=== PATIENT | female | born 1930 | race Caucasian/White ===

== ENCOUNTER 2017-03-01 10:09 | Inpatient (IN) | payer MEDICARE ==
[~2017-03-01] VITALS: Ht 152.4 cm; Wt 61.3 kg
--- NOTE | ~2017-03-01 | O ---
[place], [place] OPERATIVE NOTE [id number] UN[facility] #: [id number] ROOM: 407 DOCTOR: JONO MENCHACA MD BIRTHDATE: [birth year] DOS: 03/07/2017 PREOPERATIVE DIAGNOSIS: High-grade partial small bowel obstruction. POSTOPERATIVE DIAGNOSIS: High-grade partial small bowel obstruction. PROCEDURE: Exploratory laparotomy with lysis of adhesions. SURGEON: Jono Menchaca MD. LAW ENFORCEMENT INSTRUCTOR: PGY1. ANESTHESIA: General with endotracheal intubation. INDICATIONS: This is an 86-year-old lady who was admitted with a history of abdominal pain and distention associated with nausea and vomiting. She was diagnosed with high-grade partial small bowel obstruction despite multiple days of conservative measurement. The patient did not remove and it was decided to take the patient to the operating room for an exploratory laparotomy with possible bowel dissection, possible lysis of adhesions. The procedure and its complications were explained to the patient and her in detail preoperatively. Complications that were discussed included but were not limited to bleeding, infection, hematoma/seroma/abscess formation, prolonged postoperative pain, damage to underlying vital structures, enterocutaneous fistula formation, incisional hernia formation, and she agreed to proceed. DESCRIPTION OF PROCEDURE: After identifying the patient, the patient was brought to the operating suite and laid in the supine position. After induction of general anesthesia, a Larson catheter was placed into the urinary bladder and the parts were then painted and draped in the usual sterile fashion. A time-out procedure was called. An incision was made in the midline. The patient had had previous lower midline abdominal scar from a previous . It was decided to use the same scar and extend the incision superiorly in order to get inside the abdominal cavity in a previously unexplored area. The skin and the subcutaneous tissue were incised, the fascia was incised in the superior aspect of the incision, and the peritoneum was opened. With the help of carefully dissection, the entire small fascial defect was incised with the help of electrocautery in the length of the incision. There were no obvious adhesions between the small intestine and the midline incision. There were multiple loops of approximately dilator small bowel loops, which was delivered out of the wound until the area of the obstruction was visualized. This was found to be because of an internal hernia from from previous adhesions. The bowel was carefully pulled out and was found to be mildly ischemic, but there were no obvious necrosis or perforation. The rest of the intestine distally was decompressed. The colon was also visualized and was found to be decompressed with no obvious lesions. At this point, the area of the mild ischemia was covered with warm saline and the rest of the small intestine was decompressed so that the fluid could travel easily distally. After that was done, the area of the obstruction was visualized again and it had pinked up nicely without any areas of ischemia that could be visualized. At this point, it was decided to [place], [place] OPERATIVE NOTE NAME: NAKUL MONTERO UNIT #: [id number] ROOM: 407 DOCTOR: JONO MENCHACA MD BIRTHDATE: [birth year] not proceed with any kind of bowel dissection. The rest of the abdomen was explored and there was no obvious lesion that could be identified. Approximately 500 mL of clear ascitic fluid was sucked away. After the loops of small intestine were replaced back into the abdominal cavity, the fascial defect was approximated with the help of looped PDS in a running fashion. Thereafter, the skin edges were approximated with the help of sara after the edges were infiltrated with local anesthesia. A dressing was placed. The patient tolerated the procedure well. There were no complications. Dr. Jono Menchaca, the attending surgeon, was present throughout the operating case. The patient was brought to the recovery room in a stable fashion. Jono Menchaca MD CM:OPRECORD:OPERATIVE NOTE [id number] JONO MENCHACA MD 03/07/17 1408 interface
[~2017-03-01 10:09] MED LIST: ALBUTEROL0.09 MG/A2 INH; ASCRIPTIN325 MG; ASPIRIN ADULT L81 M1 PO; CARDIZEM CD180 MG PO; COMBIVENT1 AR2 INH; COREG6.25 MG PO; DUONEB 3 MG/3 ML3 M1 NEB; K-LOR 20MEQ20 ME1; LASIX20 MG PO; LASIX40 MG; LIPITOR10 MG; MACROBID100 M1 PO; MOM30 ML; MULTIVITAMIN1 CTB PO; NITRO BID; NORFLEX100 MG PO; PLAVIX75 MG; PREDNISONE20 MG PO; ROBITUSSIN AC 110 ML PO; SIMVASTATIN40 MG PO; SYMBICORT1 AER INH; TYLENOL325 M1; VIBRAMYCIN100 MG PO; VICODIN1 TAB PO; XANAX0.25 MG; ZITHROMAX Z PA250 MG PO
[2017-03-01] MEDS ORDERED: COREG12.5 M1 PO (10:19)
[2017-03-01 10:20] VITALS: BP 129/58
[2017-03-01] MEDS ORDERED: SYMBICORT1 AE1 INH (10:20)
[2017-03-01 10:47] LABS: BASO % 0.2 % (0.0-1.0); HEMATOCRIT 43.2 % (37.0-47.0); HEMOGLOBIN 14.7 g/dl (12.0-16.0); LYMPH # 1.4 10*3/uL (1.3-4.4); LYMPH % 13.2 % (27.0-41.0); MEAN CORPUSCULAR HGB 33.3 pg (27.0-31.0); MEAN PLATELET VOLUME 10.4 fl (9.6-12.3); MONO # 0.8 10*3/uL (0.1-1.0); MONO % 7.1 % (3.0-9.0); NEUT # 8.5 10*3/uL (2.3-7.9); NEUT % 79.2 % (47.0-73.0); PLATELET COUNT AUTOMATED 218 10*3/uL (130-400); RED BLOOD COUNT 4.41 10*6/uL (4.10-5.10); RED CELL DISTRI WIDTH 12.6 % (0-14.5); WHITE BLOOD COUNT 10.8 10*3/uL (4.8-10.8)
[2017-03-01 11:04] LABS: ALBUMIN 4.2 gm/dl (3.1-4.5); POTASSIUM 4.9 mmol/L (3.5-5.1); TOTAL PROTEIN 8.3 gm/dL (6.4-8.2)
[2017-03-01 12:07] LABS: BILIRUBIN 1+ (NEGATIVE); BLOOD NEGATIVE (NEGATIVE); CLARITY SL CLOUDY (CLEAR); COLOR YELLOW (YELLOW); GLUCOSE NEGATIVE (NEGATIVE); KETONE TRACE (NEGATIVE); LEUKO ESTERASE TRACE (NEGATIVE); NITRITE NEGATIVE (NEGATIVE); PROTEIN 1+ (NEGATIVE); SPECIFIC GRAVITY 1.025 (1.005-1.030); UROBILINOGEN 0.2 E.U./dl (0.2-1.0)
[2017-03-01 12:13] LABS: BACTERIA 1+; MUCOUS 1+
[2017-03-01 12:14] LABS: URINE REFLEX COMMENT YES (NO)
[2017-03-01 13:05] VITALS: BP 122/60
[2017-03-01 13:15] VITALS: BP 148/77
[2017-03-01 16:00] VITALS: BP 139/70
[2017-03-01 20:00] VITALS: BP 162/82
[2017-03-02] VITALS: BP 130/70; BP 143/80
[2017-03-02 06:24] LABS: HEMATOCRIT 39.1 % (37.0-47.0); HEMOGLOBIN 13.2 g/dl (12.0-16.0); MEAN CELL VOLUME 100.3 fl (81.0-99.0); MEAN CORPUSCULAR HGB 33.8 pg (27.0-31.0); MEAN CORPUSCULAR HGB CONC 33.8 g/dl (33.0-37.0); MEAN PLATELET VOLUME 10.6 fl (9.6-12.3); PLATELET COUNT AUTOMATED 171 10*3/uL (130-400); RED CELL DISTRI WIDTH 12.6 % (0-14.5)
[2017-03-02 06:44] LABS: HEMOGLOBIN A1c 5.7 % (4.8-5.6)
[2017-03-02 06:54] LABS: ALBUMIN 3.6 gm/dl (3.1-4.5); BILIRUBIN, TOTAL 0.9 mg/dl (0.2-1.0); FREE T4 1.36 ng/dl (0.76-1.46); MAGNESIUM 2.5 mg/dL (1.5-2.1); PHOSPHOROUS 4.9 mg/dL (2.5-4.9); POTASSIUM 4.5 mmol/L (3.5-5.1); TOTAL PROTEIN 7.1 gm/dL (6.4-8.2)
[2017-03-02 06:59] LABS: THYROID STIM HORMONE (HS) 1.56 uIU/ml (0.358-4.75)
[2017-03-02 07:19] LABS: VITAMIN D, 25-HYDROXY 33.6 ng/mL (30-100)
[2017-03-02 07:26] LABS: LYMPHOCYTE # 0.6 10*3/uL (1.3-4.4); MONOCYTE # 0.7 10*3/uL (0.1-1.0); NEUTROPHIL # 4.7 10*3/uL (2.3-7.9); NEUTROPHILS 78 % (47-73); PLATELET SUFFICIENCY NORMAL (NORMAL); TOTAL CELLS COUNTED 100 #CELLS
[2017-03-02 07:27] LABS: FOLIC ACID > 24.00 ng/mL (>5.38)
[2017-03-02 08:00] VITALS: BP 130/70
[2017-03-02 12:00] VITALS: BP 132/62
[2017-03-02 16:00] VITALS: BP 141/64
[2017-03-03] VITALS: BP 135/71
[2017-03-03 06:40] LABS: HEMATOCRIT 38.6 % (37.0-47.0); MEAN CELL VOLUME 99.7 fl (81.0-99.0); MEAN CORPUSCULAR HGB 33.6 pg (27.0-31.0); MEAN CORPUSCULAR HGB CONC 33.7 g/dl (33.0-37.0); MEAN PLATELET VOLUME 10.3 fl (9.6-12.3); PLATELET COUNT AUTOMATED 162 10*3/uL (130-400); RED BLOOD COUNT 3.87 10*6/uL (4.10-5.10); RED CELL DISTRI WIDTH 12.4 % (0-14.5); WHITE BLOOD COUNT 6.6 10*3/uL (4.8-10.8)
[2017-03-03 07:09] LABS: ALBUMIN 3.3 gm/dl (3.1-4.5); MAGNESIUM 2.5 mg/dL (1.5-2.1); POTASSIUM 3.7 mmol/L (3.5-5.1)
[2017-03-03 07:15] LABS: BILIRUBIN, TOTAL 0.7 mg/dl (0.2-1.0); PHOSPHOROUS 3.8 mg/dL (2.5-4.9); TOTAL PROTEIN 6.6 gm/dL (6.4-8.2)
[2017-03-03 07:24] LABS: LYMPHOCYTE # 1.5 10*3/uL (1.3-4.4); MONOCYTE # 0.3 10*3/uL (0.1-1.0); NEUTROPHIL # 4.8 10*3/uL (2.3-7.9); NEUTROPHILS 72 % (47-73); PLATELET SUFFICIENCY NORMAL (NORMAL); TOTAL CELLS COUNTED 100 #CELLS
[2017-03-03 08:00] VITALS: BP 146/80
[2017-03-03 12:00] VITALS: BP 139/58
[2017-03-03 16:00] VITALS: BP 135/93
[2017-03-03 20:00] VITALS: BP 142/70
[2017-03-04] VITALS: BP 132/66
[2017-03-04 07:06] LABS: BASO % 0.1 % (0.0-1.0); EOS % 0.1 % (1.0-4.0); HEMATOCRIT 37.9 % (37.0-47.0); HEMOGLOBIN 12.5 g/dl (12.0-16.0); LYMPH # 1.3 10*3/uL (1.3-4.4); LYMPH % 16.4 % (27.0-41.0); MEAN CELL VOLUME 101.6 fl (81.0-99.0); MEAN CORPUSCULAR HGB 33.5 pg (27.0-31.0); MEAN PLATELET VOLUME 10.8 fl (9.6-12.3); MONO # 0.8 10*3/uL (0.1-1.0); MONO % 9.5 % (3.0-9.0); NEUT % 73.5 % (47.0-73.0); PLATELET COUNT AUTOMATED 161 10*3/uL (130-400); RED BLOOD COUNT 3.73 10*6/uL (4.10-5.10); RED CELL DISTRI WIDTH 12.5 % (0-14.5); WHITE BLOOD COUNT 8.2 10*3/uL (4.8-10.8)
[2017-03-04 07:34] LABS: ALBUMIN 2.9 gm/dl (3.1-4.5); BILIRUBIN, TOTAL 0.7 mg/dl (0.2-1.0); MAGNESIUM 2.6 mg/dL (1.5-2.1); POTASSIUM 3.4 mmol/L (3.5-5.1)
[2017-03-04 08:00] VITALS: BP 134/60
[2017-03-04 12:00] VITALS: BP 117/49
[2017-03-04 16:00] VITALS: BP 151/64
[2017-03-04 20:00] VITALS: BP 118/48
[2017-03-05] VITALS: BP 135/68
[2017-03-05 05:57] LABS: BASO % 0.1 % (0.0-1.0); EOS # 0.1 10*3/uL (0.0-0.4); EOS % 0.5 % (1.0-4.0); IG # 0.1 10*3/uL (0.0-0.1); LYMPH # 1.4 10*3/uL (1.3-4.4); MEAN CORPUSCULAR HGB CONC 33.3 g/dl (33.0-37.0); MEAN PLATELET VOLUME 10.2 fl (9.6-12.3); MONO # 0.8 10*3/uL (0.1-1.0); MONO % 7.5 % (3.0-9.0); NEUT # 7.8 10*3/uL (2.3-7.9); NEUT % 77.3 % (47.0-73.0); PLATELET COUNT AUTOMATED 167 10*3/uL (130-400); RED BLOOD COUNT 3.53 10*6/uL (4.10-5.10); RED CELL DISTRI WIDTH 12.3 % (0-14.5); WHITE BLOOD COUNT 10.1 10*3/uL (4.8-10.8)
[2017-03-05 06:23] LABS: ALBUMIN 2.8 gm/dl (3.1-4.5); BILIRUBIN, TOTAL 0.7 mg/dl (0.2-1.0); MAGNESIUM 2.1 mg/dL (1.5-2.1); POTASSIUM 3.6 mmol/L (3.5-5.1); TOTAL PROTEIN 5.4 gm/dL (6.4-8.2)
[2017-03-05 08:00] VITALS: BP 105/74
[2017-03-05 16:00] VITALS: BP 131/44
[2017-03-05 20:00] VITALS: BP 133/56
[2017-03-06] VITALS: BP 131/71
[2017-03-06 08:00] VITALS: BP 116/56
[2017-03-06 12:00] VITALS: BP 134/53
[2017-03-06 16:00] VITALS: BP 138/52
[2017-03-06 20:00] VITALS: BP 126/73
[2017-03-07] VITALS (11 sets, daily range): BP systolic 105–136; BP diastolic 53–74
[2017-03-07 09:35] LABS: HEMATOCRIT 40.7 % (37.0-47.0); HEMOGLOBIN 13.6 g/dl (12.0-16.0); MEAN CELL VOLUME 99.5 fl (81.0-99.0); MEAN CORPUSCULAR HGB 33.3 pg (27.0-31.0); MEAN CORPUSCULAR HGB CONC 33.4 g/dl (33.0-37.0); MEAN PLATELET VOLUME 10.6 fl (9.6-12.3); PLATELET COUNT AUTOMATED 189 10*3/uL (130-400); RED BLOOD COUNT 4.09 10*6/uL (4.10-5.10); RED CELL DISTRI WIDTH 12.2 % (0-14.5); WHITE BLOOD COUNT 7.4 10*3/uL (4.8-10.8)
[2017-03-07 09:53] LABS: BUN 33 mg/dl (7-24); CARBON DIOXIDE 21 mmol/L (21-32); CHLORIDE 104 mmol/L (98-107); EST GLOM FILT AFRICAN AMERICAN > 60 ml/min; GLUCOSE 59 mg/dL (65-99); POTASSIUM 3.9 mmol/L (3.5-5.1); SODIUM 139 mmol/L (136-145)
[2017-03-07 10:06] LABS: EOSINOPHIL # 0.1 10*3/uL (0-0.4); EOSINOPHILS 1 % (1-4); LYMPHOCYTE # 0.8 10*3/uL (1.3-4.4); METAMYELOCYTES 1 % (0-0); MONOCYTE # 0.4 10*3/uL (0.1-1.0); NEUTROPHIL # 6.1 10*3/uL (2.3-7.9); NEUTROPHILS 82 % (47-73); TOTAL CELLS COUNTED 100 #CELLS
[2017-03-07 10:07] LABS: BURR CELLS FEW; PLATELET SUFFICIENCY NORMAL (NORMAL); TOXIC GRANULATION SLIGHT
[2017-03-08] VITALS: BP 119/52
[2017-03-08 07:35] LABS: BASO % 0.2 % (0.0-1.0); EOS % 0.1 % (1.0-4.0); HEMATOCRIT 36.6 % (37.0-47.0); HEMOGLOBIN 12.4 g/dl (12.0-16.0); IG # 0.2 10*3/uL (0.0-0.1); LYMPH # 1.4 10*3/uL (1.3-4.4); LYMPH % 11.8 % (27.0-41.0); MEAN CELL VOLUME 99.5 fl (81.0-99.0); MEAN CORPUSCULAR HGB 33.7 pg (27.0-31.0); MEAN CORPUSCULAR HGB CONC 33.9 g/dl (33.0-37.0); MEAN PLATELET VOLUME 10.4 fl (9.6-12.3); MONO # 0.8 10*3/uL (0.1-1.0); MONO % 6.8 % (3.0-9.0); NEUT # 9.1 10*3/uL (2.3-7.9); NEUT % 79.8 % (47.0-73.0); PLATELET COUNT AUTOMATED 166 10*3/uL (130-400); RED BLOOD COUNT 3.68 10*6/uL (4.10-5.10); RED CELL DISTRI WIDTH 12.4 % (0-14.5); WHITE BLOOD COUNT 11.4 10*3/uL (4.8-10.8)
[2017-03-08 07:44] LABS: ALBUMIN 2.3 gm/dl (3.1-4.5); BILIRUBIN, TOTAL 0.5 mg/dl (0.2-1.0); POTASSIUM 4.3 mmol/L (3.5-5.1); TOTAL PROTEIN 4.9 gm/dL (6.4-8.2)
[2017-03-08 08:00] VITALS: BP 122/50
[2017-03-08 12:00] VITALS: BP 119/56
[2017-03-08 16:00] VITALS: BP 109/53
[2017-03-08 20:00] VITALS: BP 106/51; BP 108/50
[2017-03-09] VITALS: BP 104/50
[2017-03-09 06:59] LABS: BASO % 0.1 % (0.0-1.0); EOS # 0.1 10*3/uL (0.0-0.4); EOS % 1.4 % (1.0-4.0); HEMATOCRIT 31.6 % (37.0-47.0); HEMOGLOBIN 10.6 g/dl (12.0-16.0); IG # 0.1 10*3/uL (0.0-0.1); LYMPH # 0.9 10*3/uL (1.3-4.4); LYMPH % 13.4 % (27.0-41.0); MEAN CELL VOLUME 99.1 fl (81.0-99.0); MEAN CORPUSCULAR HGB 33.2 pg (27.0-31.0); MEAN CORPUSCULAR HGB CONC 33.5 g/dl (33.0-37.0); MEAN PLATELET VOLUME 10.4 fl (9.6-12.3); MONO # 0.5 10*3/uL (0.1-1.0); MONO % 6.7 % (3.0-9.0); NEUT # 5.4 10*3/uL (2.3-7.9); PLATELET COUNT AUTOMATED 155 10*3/uL (130-400); RED BLOOD COUNT 3.19 10*6/uL (4.10-5.10); RED CELL DISTRI WIDTH 12.4 % (0-14.5)
[2017-03-09 07:34] LABS: POTASSIUM 3.7 mmol/L (3.5-5.1)
[2017-03-09 08:00] VITALS: BP 106/52
[2017-03-09 12:00] VITALS: BP 110/67
[2017-03-09 16:00] VITALS: BP 128/96
[2017-03-09 20:00] VITALS: BP 134/63
[2017-03-10] VITALS: BP 118/53
[2017-03-10 06:48] LABS: BASO % 0.3 % (0.0-1.0); EOS # 0.1 10*3/uL (0.0-0.4); EOS % 2.1 % (1.0-4.0); HEMATOCRIT 34.9 % (37.0-47.0); HEMOGLOBIN 11.7 g/dl (12.0-16.0); IG # 0.1 10*3/uL (0.0-0.1); LYMPH # 0.8 10*3/uL (1.3-4.4); LYMPH % 13.6 % (27.0-41.0); MEAN CELL VOLUME 99.7 fl (81.0-99.0); MEAN CORPUSCULAR HGB 33.4 pg (27.0-31.0); MEAN CORPUSCULAR HGB CONC 33.5 g/dl (33.0-37.0); MEAN PLATELET VOLUME 10.2 fl (9.6-12.3); MONO # 0.6 10*3/uL (0.1-1.0); MONO % 9.4 % (3.0-9.0); NEUT # 4.5 10*3/uL (2.3-7.9); NEUT % 73.1 % (47.0-73.0); PLATELET COUNT AUTOMATED 196 10*3/uL (130-400); RED CELL DISTRI WIDTH 12.5 % (0-14.5); WHITE BLOOD COUNT 6.2 10*3/uL (4.8-10.8)
[2017-03-10 06:54] LABS: POTASSIUM 4.3 mmol/L (3.5-5.1)
[2017-03-10 08:00] VITALS: BP 106/50
[2017-03-10 12:00] VITALS: BP 102/51
[2017-03-10 16:00] VITALS: BP 112/57
[2017-03-10 20:00] VITALS: BP 104/54
[2017-03-10 23:35] VITALS: BP 136/76
[2017-03-11 06:24] LABS: EOS # 0.2 10*3/uL (0.0-0.4); EOS % 3.1 % (1.0-4.0); HEMATOCRIT 31.1 % (37.0-47.0); HEMOGLOBIN 10.4 g/dl (12.0-16.0); IG # 0.1 10*3/uL (0.0-0.1); LYMPH # 0.9 10*3/uL (1.3-4.4); MEAN CELL VOLUME 99.4 fl (81.0-99.0); MEAN CORPUSCULAR HGB 33.2 pg (27.0-31.0); MEAN CORPUSCULAR HGB CONC 33.4 g/dl (33.0-37.0); MEAN PLATELET VOLUME 10.5 fl (9.6-12.3); MONO # 0.5 10*3/uL (0.1-1.0); MONO % 9.7 % (3.0-9.0); NEUT # 3.3 10*3/uL (2.3-7.9); PLATELET COUNT AUTOMATED 179 10*3/uL (130-400); RED BLOOD COUNT 3.13 10*6/uL (4.10-5.10); RED CELL DISTRI WIDTH 12.7 % (0-14.5); WHITE BLOOD COUNT 4.8 10*3/uL (4.8-10.8)
[2017-03-11 06:58] LABS: BUN 31 mg/dl (7-24); CARBON DIOXIDE 24 mmol/L (21-32); CHLORIDE 107 mmol/L (98-107); GLUCOSE 152 mg/dL (65-99); POTASSIUM 4.1 mmol/L (3.5-5.1); SGPT/ALT 22 U/L (12-78); SODIUM 138 mmol/L (136-145)
[2017-03-11 07:01] LABS: ALKALINE PHOSPHATASE 51 U/L (45-117); BILIRUBIN, TOTAL 0.3 mg/dl (0.2-1.0); EST GLOM FILT AFRICAN AMERICAN > 60 ml/min; SGOT/AST 25 IU/L (3-35); TOTAL PROTEIN 4.3 gm/dL (6.4-8.2)
[2017-03-11 08:00] VITALS: BP 115/70
[2017-03-11 12:00] VITALS: BP 102/56
[2017-03-11 16:00] VITALS: BP 96/50
[2017-03-11 20:00] VITALS: BP 106/59
[2017-03-11 23:49] VITALS: BP 121/54
[2017-03-12 06:06] LABS: BASO % 0.4 % (0.0-1.0); EOS # 0.2 10*3/uL (0.0-0.4); EOS % 3.2 % (1.0-4.0); HEMATOCRIT 34.8 % (37.0-47.0); HEMOGLOBIN 11.7 g/dl (12.0-16.0); IG # 0.1 10*3/uL (0.0-0.1); LYMPH # 1.4 10*3/uL (1.3-4.4); LYMPH % 25.2 % (27.0-41.0); MEAN CELL VOLUME 101.2 fl (81.0-99.0); MEAN CORPUSCULAR HGB CONC 33.6 g/dl (33.0-37.0); MEAN PLATELET VOLUME 10.3 fl (9.6-12.3); MONO # 0.6 10*3/uL (0.1-1.0); MONO % 10.1 % (3.0-9.0); NEUT # 3.4 10*3/uL (2.3-7.9); PLATELET COUNT AUTOMATED 226 10*3/uL (130-400); RED BLOOD COUNT 3.44 10*6/uL (4.10-5.10); RED CELL DISTRI WIDTH 12.9 % (0-14.5); WHITE BLOOD COUNT 5.6 10*3/uL (4.8-10.8)
[2017-03-12 06:41] LABS: ALBUMIN 2.3 gm/dl (3.1-4.5); BUN 27 mg/dl (7-24); CARBON DIOXIDE 29 mmol/L (21-32); CHLORIDE 105 mmol/L (98-107); GLUCOSE 103 mg/dL (65-99); POTASSIUM 4.7 mmol/L (3.5-5.1); SODIUM 139 mmol/L (136-145)
[2017-03-12 06:45] LABS: ALKALINE PHOSPHATASE 65 U/L (45-117); BILIRUBIN, TOTAL 0.3 mg/dl (0.2-1.0); EST GLOM FILT AFRICAN AMERICAN > 60 ml/min; SGOT/AST 32 IU/L (3-35); SGPT/ALT 29 U/L (12-78); TOTAL PROTEIN 5.1 gm/dL (6.4-8.2)
[2017-03-12 08:00] VITALS: BP 134/71
[2017-03-12 12:00] VITALS: BP 130/80
[2017-03-12 16:00] VITALS: BP 108/59
[2017-03-12 20:00] VITALS: BP 108/47
[2017-03-13] VITALS: BP 108/70
[2017-03-13 08:00] VITALS: BP 120/57
[2017-03-13 12:00] VITALS: BP 126/78
[2017-03-13] MEDS ORDERED: Percocet 325 MG1 TAB PO (13:40)
[2017-03-13] MEDS ORDERED: DOK COLACE100 MG PO (13:40)
== END 2017-03-13 15:00 | disposition home health service (06) | DRG 335 ==
LOC: ED 10:09 → EDHOLD 11:44 → 4E 11:44
PROVIDERS: Emergency Medicine; Family Medicine; Internal Medicine; Nurse Practitioner Family; Surgery
PROC: 0DN80ZZ Release Small Intestine, Open Approach (ICD-10-PCS; principal; 2017-03-07)
DX: K56.5 Intestinal adhesions [bands] with obstruction (postinfection) (principal); N17.0 Acute kidney failure with tubular necrosis; E43 Unspecified severe protein-calorie malnutrition; E87.0 Hyperosmolality and hypernatremia; N39.0 Urinary tract infection, site not specified; E86.0 Dehydration; J44.9 Chronic obstructive pulmonary disease, unspecified; E87.1 Hypo-osmolality and hyponatremia; I25.10 Atherosclerotic heart disease of native coronary artery without angina pectoris; E78.5 Hyperlipidemia, unspecified; D72.825 Bandemia; R73.9 Hyperglycemia, unspecified; R80.9 Proteinuria, unspecified; K59.00 Constipation, unspecified; Z68.21 Body mass index [BMI] 21.0-21.9, adult; I25.2 Old myocardial infarction; Z95.5 Presence of coronary angioplasty implant and graft; Z90.49 Acquired absence of other specified parts of digestive tract; Z90.710 Acquired absence of both cervix and uterus; Z83.3 Family history of diabetes mellitus; Z82.49 Family history of ischemic heart disease and other diseases of the circulatory system

== ENCOUNTER 2017-03-19 13:57 | Inpatient (IN) | payer MEDICARE ==
[~2017-03-19] VITALS: Ht 152.4 cm; Wt 53.3 kg
--- NOTE | ~2017-03-19 | PR ---
[place], [place] PROGRESS NOTE NAME: NAKUL MONTERO UNIT #: [id number] ROOM: 501 DOCTOR: IWONA CHEW MD BIRTHDATE: [birth year] DOS: 03/23/2017 SUBJECTIVE: The patient was seen at her bedside today, 03/23/2017 for followup of her diastolic heart failure in the setting of a recent abdominal surgery. The patient was diuresed aggressively with intravenous furosemide and has been switched to p.o. furosemide. She continues to diurese, although we have removed her Larson catheter and; therefore, it is difficult to quantify her urine output. BUN and creatinine appear to be rising with her BUN today of 37 and creatinine of 1.73. She denies dyspnea, palpitations or chest pain. She has not had any pedal edema in the last few days. She still has considerable lower abdominal and rectal pain. PHYSICAL EXAMINATION: VITAL SIGNS: Her pulse is 55 and regular and blood pressure is 114/56. NECK: Supple. She has no jugular distention. Carotids are full. I heard no bruits. LUNGS: Respirations are unlabored. Her chest is clear. HEART: Has a regular rhythm. She has an S4 gallop. ABDOMEN: Soft and normoactive. EXTREMITIES: Showed no edema. IMPRESSION: 1. Acute diastolic heart failure. 2. Developing prerenal azotemia. 3. Carotid bruits with 50-60% stenoses by carotid ultrasound bilaterally. 4. History of coronary artery disease, status post angioplasty in 2010. 5. Healthcare-acquired pneumonia. PLAN: I will back off on her diuretics and continue to follow her renal functions. We will continue risk factor modification for her other vascular disease and defer management of her pulmonary issues and GI issues to her other physicians. We will continue to follow her as needed and we thank Dr. Marrufo and the hospitalist physicians for asking our advice regarding her care. [place], [place] PROGRESS NOTE NAME: NAKUL MONTERO UNIT #: [id number] ROOM: [facility] DOCTOR: IWONA CHEW MD BIRTHDATE: [birth year] IWONA CHEW MD CM:PNTRANS [id number] IWONA CHEW MD 03/24/17 0300 interface
--- NOTE | ~2017-03-19 | PR ---
[place], [place] PROGRESS NOTE NAME: NAKUL MONTERO UNIT #: [id number] ROOM: 501 DOCTOR: IWONA CHEW MD BIRTHDATE: [birth year] DOS: 03/25/2017 CARDIOLOGY PROGRESS NOTE SUBJECTIVE: The patient was seen today at her bedside with her in attendance. She tells me that she is feeling relatively well, although she still has considerable lower abdominal and rectal pain. Her breathing is normal. She denies cough or chest pain. She is not having any palpitations. PHYSICAL EXAMINATION: VITAL SIGNS: Today, her pulse is 74 with an occasional premature beat. Blood pressure is 102/50. She is afebrile. NECK: Supple. She has no jugular distention. Carotids are full. I heard no bruits. LUNGS: Respirations were unlabored. Her chest is clear to auscultation and percussion. HEART: Has a regular rhythm with occasional premature beats. There are no murmurs. ABDOMEN: Benign. EXTREMITIES: Showed no ankle edema, but her feet are puffy. LABORATORY DATA: Review of laboratory studies show that her sodium is 139, potassium is 3.7, BUN has risen to 47 and creatinine has risen to 1.91. Because of this, her diuretics were stopped earlier today. IMPRESSION: 1. Acute diastolic heart failure. 2. Worsening prerenal azotemia. 3. Carotid bruits with 50-60% stenoses of the carotids bilaterally by ultrasonography. 4. History of coronary artery disease status post angioplasty in 2010. 5. Healthcare-acquired pneumonia. PLAN: We will continue to monitor her fluid balance and renal functions off of diuretics. No other cardiac evaluation is planned at this time and we will continue to follow her clinically. We thank the hospitalist service for asking our advice regarding her care. [place], [place] PROGRESS NOTE NAME: NAKUL MONTERO UNIT #: [id number] ROOM: [facility] DOCTOR: IWONA CHEW MD BIRTHDATE: [birth year] IWONA CHEW MD CM:PNTRANS [id number] IWONA CHEW MD 03/26/17 0311 interface
[~2017-03-19 13:57] MED LIST changes: +COREG12.5 M1 PO; +DOK COLACE100 MG PO; +Percocet 325 MG1 TAB PO; +SYMBICORT1 AE1 INH
[2017-03-19 13:59] VITALS: BP 143/107
[2017-03-19] MEDS ORDERED: FUROSEMIDE20 M1 PO (14:04)
[2017-03-19 14:29] LABS: BASO % 0.1 % (0.0-1.0); EOS % 0.4 % (1.0-4.0); HEMATOCRIT 33.8 % (37.0-47.0); HEMOGLOBIN 11.2 g/dl (12.0-16.0); IG # 0.1 10*3/uL (0.0-0.1); LYMPH # 1.3 10*3/uL (1.3-4.4); LYMPH % 16.2 % (27.0-41.0); MEAN CELL VOLUME 102.4 fl (81.0-99.0); MEAN CORPUSCULAR HGB 33.9 pg (27.0-31.0); MEAN CORPUSCULAR HGB CONC 33.1 g/dl (33.0-37.0); MEAN PLATELET VOLUME 9.4 fl (9.6-12.3); MONO # 0.6 10*3/uL (0.1-1.0); NEUT # 5.9 10*3/uL (2.3-7.9); NEUT % 74.7 % (47.0-73.0); PLATELET COUNT AUTOMATED 208 10*3/uL (130-400); RED CELL DISTRI WIDTH 13.3 % (0-14.5); WHITE BLOOD COUNT 7.8 10*3/uL (4.8-10.8)
[2017-03-19 14:38] LABS: PROTHROMBIN TIME 10.7 SECONDS (9.0-12.4)
[2017-03-19 14:45] LABS: ALBUMIN 2.5 gm/dl (3.1-4.5); ALKALINE PHOSPHATASE 96 U/L (45-117); BUN 31 mg/dl (7-24); CARBON DIOXIDE 35 mmol/L (21-32); CHLORIDE 103 mmol/L (98-107); CPK 36 U/L (26-192); EST GLOM FILT AFRICAN AMERICAN > 60 ml/min; GLUCOSE 117 mg/dL (65-99); SGOT/AST 32 IU/L (3-35); SGPT/ALT 27 U/L (12-78); SODIUM 142 mmol/L (136-145); TOTAL PROTEIN 5.5 gm/dL (6.4-8.2)
[2017-03-19 14:50] LABS: BILIRUBIN, TOTAL 0.5 mg/dl (0.2-1.0); CKMB 1.3 ng/ml (0.5-3.6); TROPONIN I 0.041 ng/ml (<0.045)
[2017-03-19 15:00] LABS: MAGNESIUM 1.9 mg/dL (1.5-2.1)
[2017-03-19 15:24] LABS: BILIRUBIN NEGATIVE (NEGATIVE); BLOOD NEGATIVE (NEGATIVE); CLARITY CLEAR (CLEAR); COLOR YELLOW (YELLOW); GLUCOSE NEGATIVE (NEGATIVE); KETONE NEGATIVE (NEGATIVE); LEUKO ESTERASE NEGATIVE (NEGATIVE); NITRITE NEGATIVE (NEGATIVE); PROTEIN NEGATIVE (NEGATIVE); UROBILINOGEN 0.2 E.U./dl (0.2-1.0)
[2017-03-19 15:41] LABS: BACTERIA 2+; EPITHELIAL CELLS 0-2; RBC 0-2 rbc/hpf (0-2); URINE REFLEX COMMENT YES (NO)
[2017-03-19 16:39] VITALS: BP 121/66
[2017-03-19 19:26] VITALS: BP 132/54
[2017-03-19 20:00] VITALS: BP 94/37
[2017-03-20] VITALS: BP 112/43
[2017-03-20 04:00] VITALS: BP 107/47
[2017-03-20 06:01] LABS: BASO % 0.2 % (0.0-1.0); EOS # 0.1 10*3/uL (0.0-0.4); EOS % 0.8 % (1.0-4.0); HEMATOCRIT 29.2 % (37.0-47.0); HEMOGLOBIN 9.5 g/dl (12.0-16.0); LYMPH # 1.2 10*3/uL (1.3-4.4); MEAN CELL VOLUME 104.3 fl (81.0-99.0); MEAN CORPUSCULAR HGB 33.9 pg (27.0-31.0); MEAN CORPUSCULAR HGB CONC 32.5 g/dl (33.0-37.0); MEAN PLATELET VOLUME 10.1 fl (9.6-12.3); MONO # 0.7 10*3/uL (0.1-1.0); MONO % 11.3 % (3.0-9.0); NEUT # 4.2 10*3/uL (2.3-7.9); NEUT % 68.4 % (47.0-73.0); PLATELET COUNT AUTOMATED 191 10*3/uL (130-400); RED CELL DISTRI WIDTH 13.3 % (0-14.5); WHITE BLOOD COUNT 6.1 10*3/uL (4.8-10.8)
[2017-03-20 06:12] LABS: ALBUMIN 2.1 gm/dl (3.1-4.5); ALKALINE PHOSPHATASE 79 U/L (45-117); BILIRUBIN, TOTAL 0.4 mg/dl (0.2-1.0); BUN 30 mg/dl (7-24); CARBON DIOXIDE 35 mmol/L (21-32); CHLORIDE 101 mmol/L (98-107); EST GLOM FILT AFRICAN AMERICAN > 60 ml/min; FREE T4 1.36 ng/dl (0.76-1.46); GLUCOSE 105 mg/dL (65-99); POTASSIUM 3.9 mmol/L (3.5-5.1); SGOT/AST 23 IU/L (3-35); SGPT/ALT 23 U/L (12-78); SODIUM 142 mmol/L (136-145); TOTAL PROTEIN 4.8 gm/dL (6.4-8.2)
[2017-03-20 08:00] VITALS: BP 111/50
[2017-03-20 12:00] VITALS: BP 123/54
[2017-03-20 16:00] VITALS: BP 109/41
[2017-03-20 20:00] VITALS: BP 119/55
[2017-03-21] VITALS: BP 97/46
[2017-03-21 06:20] LABS: BASO % 0.4 % (0.0-1.0); EOS # 0.2 10*3/uL (0.0-0.4); EOS % 3.1 % (1.0-4.0); HEMATOCRIT 31.2 % (37.0-47.0); HEMOGLOBIN 10.1 g/dl (12.0-16.0); LYMPH # 1.2 10*3/uL (1.3-4.4); LYMPH % 21.7 % (27.0-41.0); MEAN CELL VOLUME 104.3 fl (81.0-99.0); MEAN CORPUSCULAR HGB 33.8 pg (27.0-31.0); MEAN CORPUSCULAR HGB CONC 32.4 g/dl (33.0-37.0); MEAN PLATELET VOLUME 10.1 fl (9.6-12.3); MONO # 0.5 10*3/uL (0.1-1.0); MONO % 9.4 % (3.0-9.0); NEUT # 3.6 10*3/uL (2.3-7.9); NEUT % 64.9 % (47.0-73.0); PLATELET COUNT AUTOMATED 173 10*3/uL (130-400); RED BLOOD COUNT 2.99 10*6/uL (4.10-5.10); RED CELL DISTRI WIDTH 13.3 % (0-14.5); WHITE BLOOD COUNT 5.5 10*3/uL (4.8-10.8)
[2017-03-21 06:22] LABS: POTASSIUM 3.4 mmol/L (3.5-5.1)
[2017-03-21 08:00] VITALS: BP 112/52
[2017-03-21 12:00] VITALS: BP 110/80
[2017-03-21 16:00] VITALS: BP 102/49
[2017-03-21 20:00] VITALS: BP 112/53; BP 113/81
[2017-03-22] VITALS: BP 118/67
[2017-03-22 06:57] LABS: BASO % 0.2 % (0.0-1.0); EOS # 0.1 10*3/uL (0.0-0.4); EOS % 2.2 % (1.0-4.0); HEMATOCRIT 31.6 % (37.0-47.0); HEMOGLOBIN 10.7 g/dl (12.0-16.0); LYMPH # 1.4 10*3/uL (1.3-4.4); LYMPH % 25.2 % (27.0-41.0); MEAN CELL VOLUME 101.9 fl (81.0-99.0); MEAN CORPUSCULAR HGB 34.5 pg (27.0-31.0); MEAN CORPUSCULAR HGB CONC 33.9 g/dl (33.0-37.0); MEAN PLATELET VOLUME 9.8 fl (9.6-12.3); MONO # 0.6 10*3/uL (0.1-1.0); MONO % 10.3 % (3.0-9.0); NEUT # 3.4 10*3/uL (2.3-7.9); NEUT % 61.6 % (47.0-73.0); PLATELET COUNT AUTOMATED 194 10*3/uL (130-400); RED CELL DISTRI WIDTH 13.2 % (0-14.5); WHITE BLOOD COUNT 5.6 10*3/uL (4.8-10.8)
[2017-03-22 07:32] LABS: ALBUMIN 2.7 gm/dl (3.1-4.5); BILIRUBIN, TOTAL 0.7 mg/dl (0.2-1.0); MAGNESIUM 1.9 mg/dL (1.5-2.1); PHOSPHOROUS 2.6 mg/dL (2.5-4.9); POTASSIUM 3.7 mmol/L (3.5-5.1); TOTAL PROTEIN 5.6 gm/dL (6.4-8.2)
[2017-03-22 08:00] VITALS: BP 116/65
[2017-03-22 12:00] VITALS: BP 138/72
[2017-03-22 16:00] VITALS: BP 117/54
[2017-03-22 20:00] VITALS: BP 106/51
[2017-03-23] VITALS: BP 117/59
[2017-03-23 06:55] LABS: POTASSIUM 3.4 mmol/L (3.5-5.1)
[2017-03-23 08:00] VITALS: BP 114/56
[2017-03-23 12:00] VITALS: BP 105/55
[2017-03-23 16:00] VITALS: BP 118/56
[2017-03-23 20:00] VITALS: BP 110/60; BP 96/50
[2017-03-24] VITALS: BP 108/56
[2017-03-24 06:26] LABS: POTASSIUM 3.3 mmol/L (3.5-5.1)
[2017-03-24 08:00] VITALS: BP 114/50
[2017-03-24 12:00] VITALS: BP 106/54
[2017-03-24 16:00] VITALS: BP 109/52
[2017-03-24 20:00] VITALS: BP 100/50
[2017-03-25] VITALS: BP 100/50
[2017-03-25 06:06] LABS: BASO % 0.2 % (0.0-1.0); EOS # 0.1 10*3/uL (0.0-0.4); EOS % 2.3 % (1.0-4.0); HEMATOCRIT 28.8 % (37.0-47.0); HEMOGLOBIN 9.8 g/dl (12.0-16.0); LYMPH # 1.3 10*3/uL (1.3-4.4); MEAN CELL VOLUME 101.4 fl (81.0-99.0); MEAN CORPUSCULAR HGB 34.5 pg (27.0-31.0); MEAN PLATELET VOLUME 9.9 fl (9.6-12.3); MONO # 0.6 10*3/uL (0.1-1.0); MONO % 11.4 % (3.0-9.0); NEUT # 2.9 10*3/uL (2.3-7.9); NEUT % 59.9 % (47.0-73.0); PLATELET COUNT AUTOMATED 162 10*3/uL (130-400); RED BLOOD COUNT 2.84 10*6/uL (4.10-5.10); RED CELL DISTRI WIDTH 13.2 % (0-14.5); WHITE BLOOD COUNT 4.8 10*3/uL (4.8-10.8)
[2017-03-25 06:24] LABS: POTASSIUM 3.7 mmol/L (3.5-5.1)
[2017-03-25 08:00] VITALS: BP 100/52
[2017-03-25 12:00] VITALS: BP 94/43
[2017-03-25 16:00] VITALS: BP 102/50
[2017-03-25 20:00] VITALS: BP 102/53
[2017-03-26] VITALS: BP 95/37
[2017-03-26 00:31] VITALS: BP 105/54
[2017-03-26 06:03] LABS: BASO % 0.4 % (0.0-1.0); EOS # 0.2 10*3/uL (0.0-0.4); EOS % 3.5 % (1.0-4.0); HEMATOCRIT 30.9 % (37.0-47.0); HEMOGLOBIN 10.4 g/dl (12.0-16.0); LYMPH # 1.5 10*3/uL (1.3-4.4); LYMPH % 30.5 % (27.0-41.0); MEAN CORPUSCULAR HGB CONC 33.7 g/dl (33.0-37.0); MONO # 0.6 10*3/uL (0.1-1.0); MONO % 11.8 % (3.0-9.0); NEUT # 2.6 10*3/uL (2.3-7.9); NEUT % 53.4 % (47.0-73.0); NUCLEATED RED BLOOD CELL 0.4 % (0.0-0.0); PLATELET COUNT AUTOMATED 173 10*3/uL (130-400); RED BLOOD COUNT 3.06 10*6/uL (4.10-5.10); RED CELL DISTRI WIDTH 13.1 % (0-14.5); WHITE BLOOD COUNT 4.9 10*3/uL (4.8-10.8)
[2017-03-26 06:34] LABS: POTASSIUM 4.1 mmol/L (3.5-5.1)
[2017-03-26 08:00] VITALS: BP 102/50
[2017-03-26 12:00] VITALS: BP 88/50
[2017-03-26 16:00] VITALS: BP 98/52
[2017-03-26 19:52] VITALS: BP 108/43
[2017-03-27 00:44] VITALS: BP 131/65
[2017-03-27 06:49] LABS: POTASSIUM 3.7 mmol/L (3.5-5.1)
[2017-03-27 08:00] VITALS: BP 106/50; BP 143/74
[2017-03-27 12:00] VITALS: BP 107/54
[2017-03-27] MEDS ORDERED: ACETAMINOPHEN-H1 TA2 PO (13:27)
[2017-03-27] MEDS ORDERED: PREPARATION H CR1 OZ R (13:27)
[2017-03-27] MEDS ORDERED: LEVAQUIN500 M2 PO (13:27)
[2017-03-27] MEDS ORDERED: LASIX40 MG PO (14:34)
== END 2017-03-27 14:30 | disposition other institution (70) | DRG 871 ==
LOC: ED 13:57 → EDHOLD 17:38 → 5E 17:38 → ICCU 17:38 → 4E 18:01 → ICCU 19:54 → 5E 03-20 17:38
PROVIDERS: Emergency Medicine; Internal Medicine; Internal Medicine Cardiovascular Disease; Internal Medicine Hospice and Palliative Medicine
DX: A41.9 Sepsis, unspecified organism (principal); J15.6 Pneumonia due to other Gram-negative bacteria; J96.01 Acute respiratory failure with hypoxia; N17.0 Acute kidney failure with tubular necrosis; E43 Unspecified severe protein-calorie malnutrition; I50.31 Acute diastolic (congestive) heart failure; E87.3 Alkalosis; K57.31 Diverticulosis of large intestine without perforation or abscess with bleeding; J44.0 Chronic obstructive pulmonary disease with (acute) lower respiratory infection; K92.2 Gastrointestinal hemorrhage, unspecified; I27.2 Other secondary pulmonary hypertension; D53.1 Other megaloblastic anemias, not elsewhere classified; R65.20 Severe sepsis without septic shock; D53.9 Nutritional anemia, unspecified; K56.41 Fecal impaction; I25.10 Atherosclerotic heart disease of native coronary artery without angina pectoris; E78.5 Hyperlipidemia, unspecified; R73.9 Hyperglycemia, unspecified; R01.1 Cardiac murmur, unspecified; D72.810 Lymphocytopenia; E87.6 Hypokalemia; K64.9 Unspecified hemorrhoids; I65.23 Occlusion and stenosis of bilateral carotid arteries; E86.0 Dehydration; I25.2 Old myocardial infarction; Z95.5 Presence of coronary angioplasty implant and graft; Z90.49 Acquired absence of other specified parts of digestive tract; Z82.49 Family history of ischemic heart disease and other diseases of the circulatory system; Z88.8 Allergy status to other drugs, medicaments and biological substances; Z79.82 Long term (current) use of aspirin; Z79.899 Other long term (current) drug therapy; Z68.21 Body mass index [BMI] 21.0-21.9, adult

== ENCOUNTER → 2017-07-05 | Outpatient (CLI) | payer MEDICARE ==
[~2017-07-05] MED LIST changes: +ACETAMINOPHEN-H1 TA2 PO; +FUROSEMIDE20 M1 PO; +LASIX40 MG PO; +LEVAQUIN500 M2 PO; +PREPARATION H CR1 OZ R
[2017-07-05 15:23] LABS: HEMATOCRIT 34.2 % (37.0-47.0); HEMOGLOBIN 11.3 g/dl (12.0-16.0); MEAN PLATELET VOLUME 9.6 fl (9.6-12.3); RED BLOOD COUNT 3.32 10*6/uL (4.10-5.10); RED CELL DISTRI WIDTH 12.6 % (0-14.5); WHITE BLOOD COUNT 6.7 10*3/uL (4.8-10.8)
[2017-07-05 15:52] LABS: CREATININE 1.23 mg/dL (0.55-1.02); POTASSIUM 4.8 mmol/L (3.5-5.1)
== END | disposition home or self-care (01) ==
LOC: LAB 15:09
PROVIDERS: Internal Medicine Interventional Cardiology
DX: I25.10 Atherosclerotic heart disease of native coronary artery without angina pectoris (principal); I10 Essential (primary) hypertension; D53.9 Nutritional anemia, unspecified

== ENCOUNTER → 2017-09-26 | Outpatient (CLI) | payer MEDICARE ==
[2017-09-26 12:30] LABS: BILIRUBIN NEGATIVE (NEGATIVE); BLOOD NEGATIVE (NEGATIVE); CLARITY SL CLOUDY (CLEAR); COLOR YELLOW (YELLOW); GLUCOSE NEGATIVE (NEGATIVE); KETONE NEGATIVE (NEGATIVE); LEUKO ESTERASE 1+ (NEGATIVE); NITRITE POSITIVE (NEGATIVE); PH 5.5 (5.0-9.0); SPECIFIC GRAVITY <= 1.005 (1.005-1.030); UROBILINOGEN 0.2 E.U./dl (0.2-1.0)
[2017-09-26 12:37] LABS: BACTERIA 4+; WBC 16-20 wbc/hpf (0-5)
[2017-09-26 12:38] LABS: URINE CREATININE RANDOM 60.1 mg/dL
[2017-09-26 12:50] LABS: ALBUMIN 3.3 gm/dl (3.1-4.5); CREATININE 1.32 mg/dL (0.55-1.02); POTASSIUM 4.7 mmol/L (3.5-5.1)
== END | disposition home or self-care (01) ==
LOC: LAB 11:57
PROVIDERS: Internal Medicine Nephrology
DX: N18.3 Chronic kidney disease, stage 3 (moderate) (principal); Z79.899 Other long term (current) drug therapy

== ENCOUNTER 2017-10-04 13:31 | Inpatient (IN) | payer MEDICARE ==
[~2017-10-04] VITALS: Ht 152 cm; Wt 52.4 kg
--- NOTE | ~2017-10-04 | EKG ---
[place], [place] ELECTROCARDIOGRAM REPORT NAME: NAKUL MONTERO UNIT #: [id number] ROOM: 522 DOCTOR: BRIDGETT JOHNSON MD BIRTHDATE: [birth year] DOS: 10/04/2017 TIME: 1359 hours. FINDINGS: 1. Normal sinus rhythm at 66 beats per minute. 2. Interference is present. 3. T-wave abnormality in inferior lead. 4. No previous tracing is available for comparison. BRIDGETT JOHNSON MD CM:EKGRPT:ELECTROCARDIOGRAM REPORT 1731 10 BRIDGETT JOHNSON MD
[2017-10-04 13:36] VITALS: BP 154/100
[2017-10-04 14:04] LABS: BASO % 0.5 % (0.0-1.0); EOS # 0.1 10*3/uL (0.0-0.4); EOS % 2.3 % (1.0-4.0); HEMATOCRIT 35.5 % (37.0-47.0); HEMOGLOBIN 11.5 g/dl (12.0-16.0); LYMPH # 1.3 10*3/uL (1.3-4.4); LYMPH % 32.2 % (27.0-41.0); MEAN CELL VOLUME 104.4 fl (81.0-99.0); MEAN CORPUSCULAR HGB 33.8 pg (27.0-31.0); MEAN CORPUSCULAR HGB CONC 32.4 g/dl (33.0-37.0); MEAN PLATELET VOLUME 9.8 fl (9.6-12.3); MONO # 0.3 10*3/uL (0.1-1.0); MONO % 8.4 % (3.0-9.0); NEUT # 2.2 10*3/uL (2.3-7.9); NEUT % 56.3 % (47.0-73.0); PLATELET COUNT AUTOMATED 188 10*3/uL (130-400); WHITE BLOOD COUNT 3.9 10*3/uL (4.8-10.8)
[2017-10-04 14:23] LABS: ALBUMIN 3.5 gm/dl (3.1-4.5); CREATININE 1.28 mg/dL (0.55-1.02); POTASSIUM 4.3 mmol/L (3.5-5.1); TOTAL PROTEIN 7.1 gm/dL (6.4-8.2)
[2017-10-04 14:25] LABS: TROPONIN I 0.028 ng/ml (<0.045)
[2017-10-04 15:10] LABS: BILIRUBIN NEGATIVE (NEGATIVE); BLOOD NEGATIVE (NEGATIVE); CLARITY SL CLOUDY (CLEAR); COLOR YELLOW (YELLOW); GLUCOSE NEGATIVE (NEGATIVE); KETONE NEGATIVE (NEGATIVE); LEUKO ESTERASE 2+ (NEGATIVE); NITRITE POSITIVE (NEGATIVE); PH 5.5 (5.0-9.0); SPECIFIC GRAVITY 1.025 (1.005-1.030); UROBILINOGEN 0.2 E.U./dl (0.2-1.0)
[2017-10-04 15:20] VITALS: BP 125/50
[2017-10-04 15:20] LABS: BACTERIA 2+; WBC 51-100 wbc/hpf (0-5)
[2017-10-04 15:30] VITALS: BP 166/90
--- NOTE | 2017-10-04 15:30 | NUR ---
A 87, admitted to 5E, under the services of TIM Marx DO with a diagnosis of CHF. Chief complaint is SHORTNESS OF BREATH. Patient arrived via stretcher from ER. Monitor applied. Initial assessment completed. Vital signs taken and recorded. TIM MARX DO notified of admission to the unit. Orders received. See assessment for past medical history, medications and allergies. Patient and/or family oriented to unit. [facility] visitation policy reviewed. Clothing/patient valuable form completed. GIRMA SNELL
[2017-10-04] MEDS ORDERED: PROVENTIL HFA6.7 GM INH (15:52)
[2017-10-04] MEDS ORDERED: ONE-TABLET-DAI1 EACH PO (15:54)
[2017-10-04 20:00] VITALS: BP 123/56
--- NOTE | 2017-10-04 20:15 | NUR ---
PT PLEASANT AND COOPERATIVE DURING ASSESSMENT. C/O TICKLE IN THROAT, STATED SIPPING WATER HELPS. PT APPEARS PALE, LUNGS DIMINISHED TO AUSCULTATION. NO COMPLAINTS AT THIS TIME. CALL LIGHT IN REACH.
[2017-10-05] VITALS: BP 143/67
--- NOTE | 2017-10-05 01:54 | NUR ---
24 HOUR CHART CHECK COMPLETED AT THIS TIME.
[2017-10-05 06:56] LABS: HEMATOCRIT 34.8 % (37.0-47.0); HEMOGLOBIN 11.6 g/dl (12.0-16.0); LYMPH # 0.8 10*3/uL (1.3-4.4); LYMPH % 20.1 % (27.0-41.0); MEAN CELL VOLUME 102.1 fl (81.0-99.0); MEAN CORPUSCULAR HGB CONC 33.3 g/dl (33.0-37.0); MEAN PLATELET VOLUME 10.3 fl (9.6-12.3); NEUT # 3.2 10*3/uL (2.3-7.9); NEUT % 78.2 % (47.0-73.0); PLATELET COUNT AUTOMATED 189 10*3/uL (130-400); RED BLOOD COUNT 3.41 10*6/uL (4.10-5.10); RED CELL DISTRI WIDTH 12.8 % (0-14.5); WHITE BLOOD COUNT 4.1 10*3/uL (4.8-10.8)
[2017-10-05 07:10] LABS: ALBUMIN 3.7 gm/dl (3.1-4.5); CREATININE 1.47 mg/dL (0.55-1.02); PHOSPHOROUS 3.4 mg/dL (2.5-4.9); POTASSIUM 4.3 mmol/L (3.5-5.1); TOTAL PROTEIN 7.5 gm/dL (6.4-8.2)
[2017-10-05 07:15] LABS: THYROID STIM HORMONE (HS) 1.18 uIU/ml (0.358-4.75)
[2017-10-05 07:41] LABS: ACT PARTIAL THROMBO TIME 25.1 SECONDS (20.8-31.5); INTERNATIONAL NORM RATIO 1.1 (2.0-3.5)
[2017-10-05 08:00] VITALS: BP 110/80
[2017-10-05 09:06] LABS: VITAMIN D, 25-HYDROXY 27.6 ng/mL (30-100)
--- NOTE | 2017-10-05 09:30 | NUR ---
Historic Clothing And Costume Maker in to talk to patient. Patient states lives at home with her . There are 0 steps in the home. Physician: Dr. Maria L Rodrigues Pharmacy: [facility] health services: none at present, has used [facility] previously Patient's level of ADLs: MINIMAL ASSIST Patient has working utilities: yes DME: walker, cane Follow-up physician's appointment after d/c: will be made by hospitalist nurse director upon discharge Does patient want to access PORTAL?: no Discharge plan discussed with patient. She lives at home with her . She uses a walker/cane for ambulation and is independent in her ADLs. If needed she would like [facility] for home health. community planner to follow. GAIL ALAS
--- NOTE | 2017-10-05 11:10 | NUR ---
PHYSICAL THERAPY Initial eval done at bedside 10/05/17 morning. Please see electronic record for status. Low complexity eval #[id number]. Due to dizziness, able to complete only bed to BSC transfer; unable to attempt gait. POC to include pt ed; ther ex; gait/balance/transfer training as able. Carrie Moctezuma, PT
[2017-10-05 12:00] VITALS: BP 125/51
--- NOTE | 2017-10-05 14:15 | NUR ---
Patient requested home health. Presented with a list of agencies, patient requested [facility], has had them in the past. Received order, faxed clincals for referral.
[2017-10-05 16:00] VITALS: BP 136/52
[2017-10-05 20:00] VITALS: BP 135/68
--- NOTE | 2017-10-05 20:10 | NUR ---
PT C/O DIZZINESS WITH CHANGE OF PLANE. WILL MEDICATE WITH PRN ANTIVERT @ HS D/T PT WAS MEDICATED AT 1730 WITH ANTIVERT. CALL LIGHT AND BSC IN REACH.
--- NOTE | 2017-10-05 21:20 | NUR ---
PT MEDICATED WITH PRN ANTIVERT FOR C/O DIZZINESS. CALL LIGHT IN REACH.
--- NOTE | 2017-10-05 22:00 | NUR ---
PT RESTING QUIETLY IN BED. NO FURTHER C/O DIZZINESS NOTED.
[2017-10-06] VITALS: BP 130/60
--- NOTE | 2017-10-06 04:51 | NUR ---
24 HR chart check completed.
--- NOTE | 2017-10-06 06:00 | NUR ---
PT NOW INCONTINENT OF BM. PT STATES SHE DOES NOT WANT TO GET UP ON THE BSC. ENCOURAGEMENT AND PT TEACHING GIVEN. PT ARGUMENTATIVE W/STAFF. ALL NEEDS MET.
[2017-10-06 06:37] LABS: CREATININE 1.45 mg/dL (0.55-1.02); POTASSIUM 4.2 mmol/L (3.5-5.1)
--- NOTE | 2017-10-06 06:54 | NUR ---
PT STATES THAT DIZZINESS HAS DECREASED. DENIES NEED FOR ANTIVERT AT THIS TIME. ASSISTED TO BSC W/GUIDED ASSIST. ONLY C/O MILD DIZZINESS.
[2017-10-06 08:00] VITALS: BP 150/78
--- NOTE | 2017-10-06 08:00 | NUR ---
IN BED RESTING QUIETLY. AWAKENS TO VOICE. NO S/S OF DISTRESS. WILL CONT TO MONITOR. SEE ASSESS. CALL LIGHT IN REACH.
[2017-10-06 12:00] VITALS: BP 120/57
[2017-10-06 16:00] VITALS: BP 155/71
--- NOTE | 2017-10-06 16:15 | NUR ---
HOME O2 ASSESSMENT: PRE BP: 141/72, HR 69, RR 20, PULSE OX 94% ON ROOM AIR AT REST. AMBULATED PATIENT COMPLETE LAP IN HALLWAY, PULSE OX 89%-92% ON ROOM AIR THROUGHOUT AMBULATION. POST BP: 158/113, HR 81, RR 24, PULSE OX 94% ON ROOM AIR AT REST. APPEARED TO TOLERATE WELL, PT SLIGHTLY SHORT OF BREATH.
[2017-10-06 20:00] VITALS: BP 160/65
--- NOTE | 2017-10-06 21:50 | NUR ---
Medicated with Antivert po prn for c/o dizziness. Will monitor effectiveness. Call light within reach.
--- NOTE | 2017-10-06 22:50 | NUR ---
Patient resting quietly in bed with eyes closed. Antivert effective. Will continue to monitor. Call light within reach.
[2017-10-07] VITALS: BP 126/51
--- NOTE | 2017-10-07 00:51 | NUR ---
24 HR chart check completed.
[2017-10-07 06:42] LABS: CREATININE 1.37 mg/dL (0.55-1.02); POTASSIUM 4.5 mmol/L (3.5-5.1)
[2017-10-07 08:00] VITALS: BP 120/84
[2017-10-07 12:00] VITALS: BP 129/68
[2017-10-07 16:00] VITALS: BP 155/63
[2017-10-07 20:00] VITALS: BP 156/65
[2017-10-08] VITALS: BP 132/59
--- NOTE | 2017-10-08 04:31 | NUR ---
24 HR chart check completed.
[2017-10-08 06:49] LABS: BASO % 0.1 % (0.0-1.0); HEMATOCRIT 33.9 % (37.0-47.0); HEMOGLOBIN 11.5 g/dl (12.0-16.0); LYMPH # 1.2 10*3/uL (1.3-4.4); LYMPH % 14.5 % (27.0-41.0); MEAN CELL VOLUME 102.1 fl (81.0-99.0); MEAN CORPUSCULAR HGB 34.6 pg (27.0-31.0); MEAN CORPUSCULAR HGB CONC 33.9 g/dl (33.0-37.0); MEAN PLATELET VOLUME 9.8 fl (9.6-12.3); MONO % 11.7 % (3.0-9.0); NEUT % 73.1 % (47.0-73.0); PLATELET COUNT AUTOMATED 194 10*3/uL (130-400); RED BLOOD COUNT 3.32 10*6/uL (4.10-5.10); RED CELL DISTRI WIDTH 12.7 % (0-14.5); WHITE BLOOD COUNT 8.2 10*3/uL (4.8-10.8)
[2017-10-08 07:18] LABS: ALBUMIN 3.1 gm/dl (3.1-4.5); CREATININE 1.19 mg/dL (0.55-1.02); POTASSIUM 4.6 mmol/L (3.5-5.1); TOTAL PROTEIN 6.3 gm/dL (6.4-8.2)
[2017-10-08 08:00] VITALS: BP 155/72
--- NOTE | 2017-10-08 08:30 | NUR ---
Funeral Location Manager in to see patient. When medically stable she will be discharged home with OV if needed.
--- NOTE | 2017-10-08 10:51 | NUR ---
PHYSICAL THERAPY Pt seen this AM 1:1 for her therapy session. All transfers were CGA X 1, with little cueing. Pt did not get dizzy this therapy session. Sit/stand, standing balance MIN A X 1. Followed gait total 60' X 2, with wheeled walker and cueing for gait, walker safety with MOD A X 1, and said that she is improveing. This is my first time working with Hannah. Pt up in her bedside chair call light. ESTEFANIA REYES HOUSE CLEANER.
[2017-10-08 12:00] VITALS: BP 117/67
[2017-10-08 16:00] VITALS: BP 157/75
[2017-10-08 20:00] VITALS: BP 145/65
--- NOTE | 2017-10-08 20:19 | NUR ---
CALLED AND SPOKE WITH DR. BURNHAM ABOUT PT. HAVING HEARTBURN AND ORDERS TO COME.
--- NOTE | 2017-10-08 21:00 | NUR ---
WENT TO GIVE HEART BURN MEDICATION AND PT. SAID SHE "FELT BETTER".
[2017-10-08 22:59] VITALS: BP 113/69
--- NOTE | 2017-10-08 23:00 | NUR ---
ASSUMED CARE FOR THIS PATIENT AT THIS TIME. NO C/O VOICED AT THIS TIME.
[2017-10-09] VITALS: BP 110/48
--- NOTE | 2017-10-09 02:58 | NUR ---
24 HR chart check completed.
--- NOTE | 2017-10-09 06:40 | NUR ---
PT REFUSED NEW IV SITE. PT STATES SHE MAY BE GOING HOME TODAY. WILL ADVISE DAY NURSE THAT IF PT IS NOT D/C'D TODAY THAT SHE NEEDS A NEW IV SITE.
[2017-10-09 07:02] LABS: EOS # 0.1 10*3/uL (0.0-0.4); EOS % 1.8 % (1.0-4.0); HEMATOCRIT 33.9 % (37.0-47.0); HEMOGLOBIN 11.4 g/dl (12.0-16.0); LYMPH # 1.4 10*3/uL (1.3-4.4); LYMPH % 22.3 % (27.0-41.0); MEAN CELL VOLUME 103.4 fl (81.0-99.0); MEAN CORPUSCULAR HGB 34.8 pg (27.0-31.0); MEAN CORPUSCULAR HGB CONC 33.6 g/dl (33.0-37.0); MONO # 0.8 10*3/uL (0.1-1.0); MONO % 13.4 % (3.0-9.0); NEUT # 3.8 10*3/uL (2.3-7.9); PLATELET COUNT AUTOMATED 175 10*3/uL (130-400); RED BLOOD COUNT 3.28 10*6/uL (4.10-5.10); RED CELL DISTRI WIDTH 12.6 % (0-14.5); WHITE BLOOD COUNT 6.1 10*3/uL (4.8-10.8)
--- NOTE | 2017-10-09 07:30 | NUR ---
PT SLEEPING IN BED AND AROUSED EASILY. PT IS A+0X3 AMBROSE. HEART SOUNDS ARE REGULAR MONITOR SHOWS NORMAL SINUS RYTHM. LUNG SOUNDS ARE DIMINISHED THROUGHOUT AND RESPIRATIONS ARE EASY. BSX4 NON-TENDER AND NON-DISTENDED. +PULSES THROUGHOUT AND CAPILLARY REFILL LESS THAN 3 SECONDS. NO NOTED EDEMA. NO C/O OF PAIN. ALL VITAL SIGNS ARE STABLE BP [facility] 130[facility]. [facility]
[2017-10-09 07:35] LABS: POTASSIUM 4.7 mmol/L (3.5-5.1)
[2017-10-09 07:40] LABS: CREATININE 1.18 mg/dL (0.55-1.02)
[2017-10-09 08:00] VITALS: BP 130/60
--- NOTE | 2017-10-09 08:10 | NUR ---
RESTING QUIETLY NO C/O NO DISTRESS NOTED. PT BEING CARED FOR BY ENVIRONMENTAL SERVICES MANAGER STUDENT TODAY. WILL CONTINUE TO MONITOR.
--- NOTE | 2017-10-09 08:30 | NUR ---
Indexer in to see patient. No new needs or request at this time. She is hoping to be discharged today. When medically stable she will be to discharged to home with [facility].
--- NOTE | 2017-10-09 09:18 | NUR ---
PT EATING BREAKFAST IN BED. NO C/O PAIN, DIZZINESS, OR N/V. BED IS IN LOW POSITION AND CALL LIGHT IS IN REACH. [facility]
--- NOTE | 2017-10-09 10:10 | NUR ---
PT UP IN BED ALERT AND ORIENTED X3. NO COMPLAINTS OF PAIN OR DIZZINESS. CALL LIGHT IN REACH AND BED IN LOW POSITION. [facility]
--- NOTE | 2017-10-09 11:40 | NUR ---
PHYSICAL THERAPY Mrs Owens seen this AM 1:1 for her therapy session. All transfers were MIN A X 1, with cueing for transfere safety. Gait with wheeled walker 65' X 2, MIN to MOD HELICOPTER CREW CHIEF X 1, with cueing for gait safety and her turns no LOB this visit. Pt with call light and her phone. ESTEFANIA REYES SALES AND MARKETING ADMINISTRATOR.
[2017-10-09 12:00] VITALS: BP 119/60
[2017-10-09] MEDS ORDERED: DOXYCYCLINE100 MG PO (12:11)
--- NOTE | 2017-10-09 12:30 | NUR ---
PT IS A+OX3 PLEASANT AND COOPERATIVE. AMBROSE. HEART SOUNDS NORMAL AND PT IS ON MONITOR SHOWING A-FIB WITH OCCASIONAL PVC'S. LUNG SOUNDS ARE DIMINISHED THROUGHOUT. BSX4 NON-TENDER AND NON-DISTENDED. +PULSES THROUGHOUT WITH LESS THAN 3 SECOND CAP REFILL. PT IV SITE IN RIGHT HAND IS OUTDATED AND PATIENT REFUSES NEW ONE, IV IN RIGHT HAND IS INTACT. PT BED IS IN LOW POSITION AND CALL LIGHT IS IN REACH. [facility]
--- NOTE | 2017-10-09 14:22 | NUR ---
ASSESS FOR HOME O2: SPO2 AT REST ON RA 94%, HR 76, RR 20, BP 122/40 DURING AMBULATION SPO2 90-94%, HR 82, RR 24 WITH NO C/O SOB OR INCREASED WOB BP AFTER WALK 137/65, HR 82, RR 20, SPO2 97%
--- NOTE | 2017-10-09 15:12 | NUR ---
PHYSICAL THERAPY CO-SIGN I approve of the Phyical Therapy notes written above. EUNICE MACE PT
--- NOTE | 2017-10-09 16:41 | NUR ---
DISCHARGED TO HOME IN CARE OF SPOUSE. INSTRUCTINS AND PERSCRIPTIONS REVIEWED WITH PT. PT UP TO DATE ON FLU AND PNEUMONIA VACCINES.
== END 2017-10-09 16:41 | disposition home health service (06) | DRG 291 ==
LOC: ED 13:31 → EDHOLD 14:52 → 5E 14:52
PROVIDERS: Internal Medicine; Internal Medicine Nephrology; Nurse Practitioner Family; ADMIT Internal Medicine
DX: I50.33 Acute on chronic diastolic (congestive) heart failure (principal); N17.0 Acute kidney failure with tubular necrosis; E86.0 Dehydration; I27.20 Pulmonary hypertension, unspecified; E83.41 Hypermagnesemia; I36.1 Nonrheumatic tricuspid (valve) insufficiency; E83.51 Hypocalcemia; J44.1 Chronic obstructive pulmonary disease with (acute) exacerbation; N39.0 Urinary tract infection, site not specified; I65.23 Occlusion and stenosis of bilateral carotid arteries; D53.9 Nutritional anemia, unspecified; N18.3 Chronic kidney disease, stage 3 (moderate); R73.9 Hyperglycemia, unspecified; I25.10 Atherosclerotic heart disease of native coronary artery without angina pectoris; K57.90 Diverticulosis of intestine, part unspecified, without perforation or abscess without bleeding; I34.0 Nonrheumatic mitral (valve) insufficiency; R03.0 Elevated blood-pressure reading, without diagnosis of hypertension; E78.5 Hyperlipidemia, unspecified; Z88.8 Allergy status to other drugs, medicaments and biological substances; Z22.322 Carrier or suspected carrier of Methicillin resistant Staphylococcus aureus; Z79.899 Other long term (current) drug therapy; Z79.82 Long term (current) use of aspirin; Z87.01 Personal history of pneumonia (recurrent); I25.2 Old myocardial infarction; Z90.49 Acquired absence of other specified parts of digestive tract; Z98.61 Coronary angioplasty status; Z98.891 History of uterine scar from previous surgery; Z90.710 Acquired absence of both cervix and uterus; Z82.49 Family history of ischemic heart disease and other diseases of the circulatory system; Z83.3 Family history of diabetes mellitus

== ENCOUNTER 2018-01-29 16:34 | Inpatient (IN) | payer MEDICARE ==
[~2018-01-29] VITALS: Ht 152.4 cm; Wt 50.8 kg
--- NOTE | ~2018-01-29 | CON ---
[place], [place] REPORT OF CONSULTATION NAME: NAKUL MONTERO UNIT #: [id number] ROOM: 519 DOCTOR: KIERRA MIRAMONTES DO BIRTHDATE: [birth year] DOS: 01/30/2018 REASON FOR CONSULTATION: COPD exacerbation and acute respiratory failure with hypoxia. REQUESTING SERVICE: Hospitalist group. HISTORY OF PRESENT ILLNESS: The patient is an 87-year-old white female who presented to the ER complaining of shortness of breath, worse with exertion, worsening over the past week. She also noted productive cough. She is a patient of Dr. Mayen as an outpatient and she saw him in an outpatient and at that time, her symptoms were so severe that he recommended she come to the ER for likely treatment and admission. While in the ER, she was noted to be hypoxic on room air with ambulation, pulse ox dropped to the high 80s, 87-88% and she was started on O2 via nasal cannula. She was then admitted to telemetry bed and started on treatment for COPD exacerbation. At the present time, she feels much better after receiving treatment thus far with IV steroids, IV antibiotics, and DuoNeb breathing treatments. REVIEW OF SYSTEMS: CONSTITUTIONAL: Denies fevers, denies chills, denies any significant weight change. Denies fatigue. EYES: Denies burning, redness or tenderness. Denies change in vision or blurry vision. ENT: Denies nasal congestion. Denies throat pain. Denies nose pain. Denies ear pain. Denies mouth pain. Denies epistaxis. CARDIOVASCULAR: Denies chest pain, denies palpitations, denies lower extremity edema. Denies diaphoresis. RESPIRATORY: Reports shortness of breath. Reports dyspnea on exertion, reports cough, but denies sputum production. Denies hemoptysis. Denies paroxysmal nocturnal dyspnea. Reports mild wheezing. ABDOMEN: Denies abdominal pain. Denies nausea. Denies vomiting, denies diarrhea, denies constipation. Denies melena, denies hematochezia. Denies hematemesis. GENITOURINARY: Denies dysuria, denies hematuria, denies increase in frequency, urgency or hesitancy with urination. NEUROLOGIC: Denies lightheadedness. Denies dizziness, denies confusion. PSYCHIATRIC: Denies depression, denies anxiety. Denies substance abuse. ENDOCRINE: Denies polydipsia, reports cold intolerance. Denies heat intolerance. SKIN: Denies new rashes. Denies lesions. Denies ulcerations. PAST MEDICAL HISTORY: 1. Asthma. 2. COPD. 3. CAD. 4. Carotid stenosis, bilateral. 5. Chronic kidney disease stage 3. 6. Diverticulosis. 7. Hypertension. [place], [place] REPORT OF CONSULTATION NAME: NAKUL MONTERO UNIT #: [id number] ROOM: [facility] DOCTOR: KIERRA MIRAMONTES DO BIRTHDATE: [birth year] 8. Lung nodule. 9. Macrocytic anemia. 10. Prediabetes. 11. Pulmonary hypertension. 12. Vitamin D deficiency. PAST SURGICAL HISTORY: 1. History of artery stenting. 2. History of lysis of adhesions in the abdomen. 3. History of . 4. History of cholecystectomy. SOCIAL HISTORY: Denies alcohol consumption. Denies illicit drug use and nonsmoker. FAMILY HISTORY: Father is at age 80 of unknown cause. Mother at age 86 of a myocardial infarction. DRUG ALLERGIES: PHENERGAN HOME MEDICATIONS: Albuterol 2 puffs inhaled q.4. p.r.n. shortness of breath, wheezing; Symbicort 2 puffs inhaled b.i.d.; 81 mg baby aspirin daily; Coreg 12.5 mg q.12 hours; multivitamin 1 daily; and simvastatin 40 mg at bedtime. PHYSICAL EXAMINATION: GENERAL: An 87-year-old white female currently comfortable sitting at the side of the bed without any acute distress, nasal cannula in place. She is 5 feet and 50.83 kilograms with a BMI of 21.9. VITAL SIGNS: At the time of exam, temperature 98.1, pulse 69, respiratory rate 18, blood pressure 147/63, and bedside pulse ox 98% on 2 liters O2 via nasal cannula. HEAD: Normocephalic, atraumatic. EYES: PERRL. No lesions, no ulcerations, nonicteric, no drainage. ENT: No lesions, no scars, no masses. Nares patent. Oropharynx clear. Oral mucosa moist. Uvula not deviated. No pharyngeal exudate. No pharyngeal erythema. NECK: Without lesions, without masses. No ulceration. Trachea midline. Thyroid not enlarged. Thyroid nontender. Supple, nontender. HEART: Regular rate and rhythm. No gallop, no murmur. No lower extremity edema. LUNGS: Mildly diminished throughout, but clear to auscultation bilaterally. No rhonchi, wheezing or rales appreciated. ABDOMEN: Soft, nontender, nondistended, positive bowel sounds. No organomegaly appreciated. EXTREMITIES: No clubbing, no cyanosis, no erythema, no edema. NEUROLOGIC: Grossly intact without focal neuro deficit. Sensation grossly intact. Ambulates well. PSYCHIATRIC: Good historian. Good recent and remote memory. Exhibits normal mood and affect. SKIN: Warm and dry, no rash, no ulceration, no lesion, no induration, no [place], [place] REPORT OF CONSULTATION NAME: NAKUL MONTERO UNIT #: [id number] ROOM: [facility] DOCTOR: KIERRA MIRAMONTES DO BIRTHDATE: [birth year] tightening. LABORATORY AND DIAGNOSTIC DATA: CBC on admission 01/29/2018 shows white blood cell count 4.6, hemoglobin and hematocrit 10.8 and 32.9, platelet count 175. CMP on admission 01/29/2018, sodium 138, potassium 4.7, BUN 30, creatinine 1.31, bicarbonate 28, glucose 113, calcium 8.1 with an albumin of 3.3, magnesium 2.3. Troponins have been cycled and are 0.025 on admission, then 0.027, then 0.026 in the normal range. CMP today noted with hyperkalemia of 5.4, bicarbonate 26, BUN 30, creatinine 1.29, glucose 157, magnesium 2.4, albumin down to 2.9. TSH 1.41. Vitamin B12, vitamin D, and folate all normal. A1c 5.7 in the prediabetic range. CBC from this morning, white blood cells 3.5, hemoglobin 10.6, hematocrit 32.8 with an MCV of 104.1, megaloblastic anemia. Platelet count 154. Nasal flu swab in the ER was negative. Blood cultures are pending as is a urine culture. Chest x-ray done in the ER shows chronic changes with no acute process, no adverse change. IMPRESSION: 1. Chronic obstructive pulmonary disease exacerbation with pneumonitis. 2. Acute respiratory failure with hypoxia. 3. Coronary artery disease. 4. Lung nodule. 5. History of pulmonary hypertension. PLAN OF MANAGEMENT: The patient has been admitted to telemetry. Troponins were cycled and were negative. She was started on IV Solu-Medrol at 40 mg q.12h., we agree with continuing the current dose. The patient was also started on IV antibiotics of Rocephin and azithromycin, we agree with continuing these antibiotics. Also started on DuoNeb. Continue DuoNeb q.4h. and Mucinex q.12h. as well. The patient has already had marked improvement of her respiratory symptoms, we will continue to follow her progression tomorrow. Thank you for allowing us to participate in the care of this patient. KIERRA MIRAMONTES DO JOSÉ MIGUEL MAYEN MD CM:CONSTR:REPORT OF CONSULTATION 1516 01/30/18 1723 interface
--- NOTE | ~2018-01-29 | CON ---
[place], [place] REPORT OF CONSULTATION NAME: NAKUL MONTERO UNIT #: [id number] ROOM: 519 DOCTOR: TIARRA CRESPO MDJOSÉ MIGUEL BIRTHDATE: [birth year] DOS: 01/30/2018 CONSULTATION ADDENDUM CONSULTATION REQUESTED BY: Hospitalist service. REASON FOR CONSULTATION: For assessment of the COPD. The patient was independently seen and examined with the history taken from the patient personally. Physical examination performed. All the labs reviewed. Assessment was personally made for today's visit. Change in medical management personally made as well and approved. Note done by the medical case worker was approved. HISTORY OF PRESENT ILLNESS: This is an 87-year-old white female, who presented to my office yesterday as the patient has been noted with progressive increased fatigue, shortness of breath with minimal exertion, and significant decreased exercise tolerance. The patient has been noted with mild cough. There were no symptoms of wheezing or edema of the lower extremity was reported. The patient was assessed in the office was noted with decreased breath sounds in the lungs bilaterally. Chest x-ray was done in the office was suggested possibility of basilar area of atelectasis, infiltration, or the pleural fluid. The patient sent to the hospital emergently for further assessment as the patient was also noted with oxygen desaturation at rest with 89% to 87% with minimal exertion, walking about 10 feet in my office. The patient has been assessed in the Emergency Room and has been hospitalized for further medical management at this time. The patient has not been noted any symptoms of chest pain or any hemoptysis. The patient does not have any symptoms of coughing or wheezing. The patient's review of systems was completed by the medical case worker. PAST MEDICAL HISTORY: 1. Noted with history of COPD and bronchial asthma. 2. Congestive heart failure, diastolic dysfunction. 3. Mitral valve prolapse. 4. Essential hypertension. 5. Coronary artery disease. 6. Chronic kidney disease, stage 3. 7. Hypercholesterolemia. PAST SURGICAL HISTORY: 1. Complete hysterectomy. 2. Bladder neck suspension. 3. Coronary artery stent insertion. 4. . 5. Cholecystectomy. 6. Adhesion of lysis of the abdomen with laparotomy. SOCIAL HISTORY: The patient noted nonsmoker lifetime, lives at home, and . [place], [place] REPORT OF CONSULTATION NAME: NAKUL MONTERO UNIT #: [id number] ROOM: 519 DOCTOR: TIARRA CRESPO MD,JOSÉ MIGUEL BIRTHDATE: [birth year] FAMILY HISTORY: The patient's father at [id number], unknown illness. Mother at 86-year-old from complication of myocardial infarction. HOME MEDICATIONS: Noted use of Proventil HFA, aspirin, Symbicort 160/4.5, Coreg, multivitamin, and simvastatin. DRUG ALLERGY HISTORY: ALLERGY TO THE PHENERGAN. PHYSICAL EXAMINATION: GENERAL: This is an 87-year-old female patient who has been currently noted sitting on the bed, stating she has been feeling better from yesterday of assessment. Height of 5 feet, weight 112 pounds, and BMI 21.8. VITAL SIGNS: Normal temperature, respirations 18-24, heart rate 65-70, and blood pressure is 129/50-147/63. The pulse oxygen saturation is 95% saturation on 2 liter nasal cannula. HEENT: Head was atraumatic. Eyes nonicterus. NECK: Supple. CARDIOVASCULAR: S1, S2 audible. LUNGS: The patient is noted with decreased breath sounds bilaterally with partial improvement in air entry noted yesterday. ABDOMEN: Soft, flat, and nontender. EXTREMITIES: Without any acute edema. CENTRAL NERVOUS SYSTEM: Cranial nerves 2-12 intact. No focal deficits. MUSCULOSKELETAL: Without any significant deformities. VISIBLE SKIN: No lesions or rashes. LABORATORY DATA: CBC yesterday, WBC count 4.6, hemoglobin 10.8, hematocrit 32.9, and platelet count normal. Lactic acid normal yesterday. Influenza A and B, nasal washing antigen negative. PT and PTT yesterday normal. CMP for the patient, BUN 30 and creatinine 1.31. The arterial blood gas on 2 liters, pH of 7.36, pCO2 of 48, and pO2 100. The CBC this morning, WBC count 3.5, hemoglobin 10.6, hematocrit 32.8, and platelet count of 154,000. CMP, BUN 30, creatinine 1.29, glucose 157, and potassium 5.4. PT and PTT repeated again was noted normal. One view chest x-ray of the patient that was reviewed shows basilar areas of atelectasis was noted with a small pleural fluid was suspected. IMPRESSION: 1. The patient who has been currently admitted to the hospital with combination of multiple factors, possible exacerbation of chronic obstructive pulmonary disease with acute congestive heart failure, superimposed with small pleural fluid cannot be completely excluded. 2. Leukopenia and anemia as well. 3. Elevation of BUN and creatinine secondary to chronic kidney disease, superimposed component cannot be excluded. PLAN OF MANAGEMENT: Continuation of the patient's current bronchodilators administration and oxygen supplementation. Repeat a chest x-ray, PA and lateral view in the morning. Sputum for Gram stain and culture to expectorate sputum. Certainly, she does not have much cough at this time. Bronchodilator will be [place], [place] REPORT OF CONSULTATION NAME: NAKUL MONTERO UNIT #: [id number] ROOM: [facility] DOCTOR: TIARRA CRESPO MD,JOSÉ MIGUEL BIRTHDATE: [birth year] continued every 4 hours. Additional treatment changes will be recommended for the patient based on the progression of the illness. The patient already has been ordered the echocardiogram by the primary care attending, which will be monitored. Other additional treatment changes will be suggested for the patient based on the progression of the illness. JOSÉ MIGUEL MAYEN MD CM:CONSTR:REPORT OF CONSULTATION [id number] 02/06/18 0715 interface
--- NOTE | ~2018-01-29 | PR ---
[place], [place] PROGRESS NOTE NAME: NAKUL MONTERO UNIT #: [id number] ROOM: 519 DOCTOR: JOSÉ MIGUEL MERCEDES MD BIRTHDATE: [birth year] DOS: 02/01/2018 PULMONARY ADDENDUM NOTE SUBJECTIVE: The patient independently seen and examined today with [id number] encounter, history was confirmed. Physical examination performed. Labs were reviewed. The assessment for the patient and the management changes were personally completed at today's visit. The note done by the biomedical engineer was also approved. The patient has shown progressive improvement in respiratory symptom with resolving cough, shortness of breath and fatigue. Denies symptoms of chest pain. Denies any wheezing. PHYSICAL EXAMINATION: VITAL SIGNS: Reviewed for the patient noted as normal vital signs this morning. The pulse oxygen saturation on room air was noted as 96-98% saturation on room air. HEENT: No new change. CARDIOVASCULAR: S1, S2 audible. LUNGS: The patient was noted without any wheeze or crackles at this time. ABDOMEN: Soft, nontender. EXTREMITIES: Without any acute edema. IMPRESSION: 1. Resolving acute exacerbation of chronic obstructive pulmonary disease. Small bilateral pleural fluid secondary to congestive heart failure as well was suspected. 2. Chronic kidney disease stage 2 to stage 3. PLAN OF MANAGEMENT: No changes from the patient's pulmonary standpoint, the patient could be prepared for home discharge for today. Tapering dose of prednisone and use of previous home medication as well as small dose of diuretics was recommended, also Lasix 20 mg daily. Outpatient followup to be established post-discharge. [place], [place] PROGRESS NOTE NAME: NAKUL MONTERO UNIT #: [id number] ROOM: 519 DOCTOR: JOSÉ MIGUEL MERCEDES MD BIRTHDATE: [birth year] JOSÉ MIGUEL MAYEN MD CM:PNTRANS [id number] JOSÉ MIGUEL CRESPO MD 02/02/18 0254 interface
--- NOTE | ~2018-01-29 | PR ---
[place], [place] PROGRESS NOTE NAME: NAKUL MONTERO UNIT #: [id number] ROOM: 519 DOCTOR: KIERRA MIRAMONTES DO BIRTHDATE: [birth year] DOS: 01/31/2018 SUBJECTIVE: The patient is examined sitting upright at her bedside today. She states she is feeling much better and breathing much easier today. She notes that she has not been up ambulating too much and is still using 1-2 liters of oxygen via nasal cannula much. She does state she would like to try ambulating without the oxygen on to see if she still needs it. OBJECTIVE: VITAL SIGNS: At the time of exam, temperature 97.8, pulse 78, respiratory rate 18, blood pressure 122/94, bedside pulse ox 97% on 2 liters via nasal cannula. GENERAL APPEARANCE: Alert, awake, no acute distress, responsive, cooperative. HEAD: Normocephalic, atraumatic. EYES: No lesion, no scars, nonicteric, no drainage. ENT: No lesions, no scars, no masses. Nares patent. Oropharynx clear. Oral mucosa moist. NECK: Without lesion, without masses. No ulceration. Trachea midline. LUNGS: Normal breath sounds, no respiratory distress. Clear to auscultation bilaterally. Good inspiratory effort with no rhonchi, wheezing or rales appreciated today. CARDIAC: Regular rate and rhythm. No gallop, no murmur. No edema in the lower extremities. ABDOMEN: Soft, positive bowel sounds, nontender, nondistended, no organomegaly noted. No abdominal pain. EXTREMITIES: No clubbing, no cyanosis, no erythema, no edema. NEUROLOGIC: Grossly intact without focal neuro deficit. Sensation grossly intact. PSYCHIATRIC: Good historian. Fair judgment and insight. Good recent and remote memory. Normal mood and normal affect. SKIN: Warm and dry, no rash, no ulceration, no lesion, no induration, no nodules, no tightening. LABORATORY AND DIAGNOSTIC DATA: CBC: White count 7.6, hemoglobin and hematocrit 10.7 and 33.5, platelet count 187. BMP: Sodium 136, potassium 5, chloride 102, bicarbonate 27, BUN 36, creatinine 1.32, glucose 168, calcium 8.3. Blood cultures taken on admission showed no growth. Urine culture has resulted preliminary with greater than 100,000 colony forming units per mL of heavy Gram-negative bacteria, though the patient does not admit any urinary discomfort. Two-view chest x-ray taken this morning notes an enlarged heart with calcification and tortuous thoracic aorta. There is some cephalization of the pulmonary vasculature. There are small bilateral pleural effusions. Bibasilar areas of atelectasis are concern. Postoperative changes in the upper abdomen are noted with the impression of congestive heart failure, unchanged. IMPRESSION: 1. Exacerbation of chronic obstructive pulmonary disease. 2. Acute exacerbation of congestive heart failure with superimposed bilateral pleural effusions. 3. Chronic macrocytic anemia. 4. Stage 3 chronic kidney disease. [place], [place] PROGRESS NOTE NAME: NAKUL MONTERO UNIT #: [id number] ROOM: [facility] DOCTOR: KIERRA MIRAMONTES DO BIRTHDATE: [birth year] TREATMENT PLAN: The patient will be assessed for home oxygen need today. Continue Solu-Medrol 40 q.12h. with DuoNeb breathing treatments q.6h., Mucinex 1200 mg q.12h. and antibiotic coverage of Rocephin and azithromycin. KIERRA MIRAMONTES DO JOSÉ MIGUEL MAYEN MD CM:MAIRA [id number] KIERRA MIRAMONTES DO 01/31/18 1642 interface
--- NOTE | ~2018-01-29 | PR ---
[place], [place] PROGRESS NOTE NAME: [id number] UNIT #: [id number] ROOM: 519 DOCTOR: TIARRA CRESPO MD,JOSÉ MIGUEL BIRTHDATE: [birth year] DOS: 01/31/2018 SUBJECTIVE: The patient was independently seen and examined in [id number] encounter, history was confirmed. Physical examination performed. Labs were reviewed. Assessment and management of the patient for today's note was personally completed. Note done by the medical claims representative and approved. HISTORY OF PRESENT ILLNESS: The patient noted comfortable at this time, noted reduction in symptoms of shortness of breath. The weakness and fatigue for the patient is also improving. There were no symptoms of hemoptysis. The patient does have cough with small amount of sputum expectoration reported. There was symptom of wheezing. The patient denies any edema or pain in the lower extremity, denies headache. General weakness and fatigue was also noted decreased for the patient as previously. Remaining systems were reviewed. They were noted all negative. OBJECTIVE: VITAL SIGNS: Normal temperature, respiratory rate 18, heart rate 76, blood pressure 113/53-122-94. Pulse oxygen saturation on 2 liters nasal cannula 97% saturation. HEENT: No acute change. NECK: Supple. CARDIOVASCULAR: S1, S2 audible. LUNGS: Noted improvement in the air entry for this patient in general without any wheezing or crackles. Decreased breaths in lower portion of the lungs. ABDOMEN: Soft and nontender. It was flat. EXTREMITIES: Without any acute edema. SKIN: No lesions or rashes. MUSCULOSKELETAL SYMPTOMS: Without any acute deformities. LABORATORY DATA: Chest x-ray that I ordered this morning was completed for the patient 2-view shows evidence of small pleural fluid persistent with basilar areas of atelectasis. BMP this morning, BUN 36, creatinine 1.32, and glucose 168. IMPRESSION: 1. Resolving acute exacerbation of chronic obstructive pulmonary disease. 2. The patient with acute congestive heart failure was also noted with possible diastolic dysfunction or systolic dysfunction. 3. Debility and weakness are noted decreased. 4. The patient with elevation of BUN and creatinine was also noted on this admission with history of chronic kidney disease. PLAN OF MANAGEMENT: Continuation of the bronchodilators and oxygen supplementation, Solu-Medrol will be decreased to 40 mg daily. Cardiology assessment might be needed for the patient for adjustment of medication for congestive heart failure management. Pleural fluid noted small at this time. Would not require any intervention or assessment. The patient will be continued in the meantime other therapy, plan of management as in progress. Usual care. [place], [place] PROGRESS NOTE NAME: NAKUL MONTERO UNIT #: [id number] ROOM: [facility] DOCTOR: TIARRA CRESPO MD,JOSÉ MIGUEL BIRTHDATE: [birth year] She has been ambulatory about 50 feet levels noted maintaining pulse oxygen saturation 99-100% during or after completion of the current short term ambulation. JOSÉ MIGUEL MAYEN MD CM:MAIRA [id number] JOSÉ MIGUEL CRESPO MD 02/06/18 0718 interface
--- NOTE | ~2018-01-29 | PR ---
[place], [place] PROGRESS NOTE NAME: NAKUL MONTERO UNIT #: [id number] ROOM: 519 DOCTOR: KIERRA MIRAMONTES DO BIRTHDATE: [birth year] DOS: 02/01/2018 SUBJECTIVE: The patient is feeling very well today. She states her breathing is much improved and she has been up ambulating in the halls without getting dyspneic with exertion. She was assessed for home oxygen yesterday and did not require O2 use during ambulation and therefore did not qualify for home oxygen. She denies any current shortness of breath, chest pain, lightheadedness, dizziness, fever, chills, nausea, vomiting or any other complaints at this time and she and her feel that she could be discharged back home. She does note that she has some swelling in her feet and ankles and notes that she has been sitting with her legs hanging down. OBJECTIVE: VITAL SIGNS: At the time of exam, temperature 98.1, pulse 71, respiratory rate 17, blood pressure 145/70, and bedside pulse ox 96% on room air. GENERAL: Alert and awake, no acute distress, responsive, cooperative. HEAD: Normocephalic, atraumatic. EYES: No lesions, no scars, nonicteric, no drainage. ENT: No lesion, no scars, no masses. Nares patent. Oropharynx clear. Oral mucosa moist. NECK: Without lesions, without masses. No ulceration. Trachea midline. LUNGS: Normal breath sounds. No respiratory distress. Clear to auscultation bilaterally. Good inspiratory effort with no rhonchi, wheezing or rales. CARDIAC: Regular rate and rhythm. No gallop, no murmur. Trace lower extremity edema. ABDOMEN: Soft, positive bowel sounds, nontender, nondistended, no organomegaly, no abdominal pain. EXTREMITIES: No clubbing, no cyanosis, no erythema. Trace bilateral lower extremity edema. NEUROLOGIC: Grossly intact without focal neuro deficits. Sensation grossly intact. PSYCHIATRIC: Good historian. Fair judgment and insight. Good recent and remote memory. Normal mood and normal affect. SKIN: Warm and dry. No rash, no ulceration, no lesion, no induration, no nodules, no tightening. LABORATORY AND DIAGNOSTIC DATA: Blood cultures are negative. Urine culture has identified greater than 100,000 colony-forming units per mL of Klebsiella pneumoniae, which is pansensitive. IMPRESSION: 1. Exacerbation of chronic obstructive pulmonary disease. 2. Acute exacerbation of congestive heart failure with superimposed bilateral pleural effusions. 3. Chronic macrocytic anemia. 4. Stage 3 chronic kidney disease, stable. TREATMENT PLAN: The patient is cleared from pulmonary standpoint for discharge today. We do recommend that she continue on 20 mg p.o. Lasix daily to prevent pleural effusions. This dose can be titrated up or down as an outpatient and as [place], [place] PROGRESS NOTE NAME: NAKUL MONTERO [place] UNIT #: [id number] ROOM: [facility] DOCTOR: KIERRA MIRAMONTES DO BIRTHDATE: [birth year] tolerated by kidney function. Recommend continuing p.o. antibiotics to finish out a course as an outpatient. Also, recommend discharge with a prednisone taper. KIERRA MIRAMONTES DO JOSÉ MIGUEL MAYEN MD CM:MAIRA [phone] [id number] KIERRA MIRAMONTES DO 02/01/18 182 interface
[~2018-01-29 16:34] MED LIST changes: +DOXYCYCLINE100 MG PO; +ONE-TABLET-DAI1 EACH PO; +PROVENTIL HFA6.7 GM INH
[2018-01-29 16:52] VITALS: BP 129/50
[2018-01-29 17:26] VITALS: BP 132/60
[2018-01-29 17:30] LABS: BASO % 0.4 % (0.0-1.0); EOS # 0.1 10*3/uL (0.0-0.4); HEMATOCRIT 32.9 % (37.0-47.0); HEMOGLOBIN 10.8 g/dl (12.0-16.0); LYMPH # 1.3 10*3/uL (1.3-4.4); MEAN CELL VOLUME 102.2 fl (81.0-99.0); MEAN CORPUSCULAR HGB 33.5 pg (27.0-31.0); MEAN CORPUSCULAR HGB CONC 32.8 g/dl (33.0-37.0); MEAN PLATELET VOLUME 9.7 fl (9.6-12.3); MONO # 0.6 10*3/uL (0.1-1.0); MONO % 12.3 % (3.0-9.0); NEUT # 2.6 10*3/uL (2.3-7.9); NEUT % 55.9 % (47.0-73.0); PLATELET COUNT AUTOMATED 175 10*3/uL (130-400); RED BLOOD COUNT 3.22 10*6/uL (4.10-5.10); RED CELL DISTRI WIDTH 12.4 % (0-14.5); WHITE BLOOD COUNT 4.6 10*3/uL (4.8-10.8)
[2018-01-29 17:50] LABS: ALBUMIN 3.3 gm/dl (3.1-4.5); CREATININE 1.31 mg/dL (0.55-1.02); POTASSIUM 4.7 mmol/L (3.5-5.1); TOTAL PROTEIN 6.6 gm/dL (6.4-8.2); TROPONIN I 0.025 ng/ml (<0.045)
[2018-01-29 18:23] VITALS: BP 136/55
[2018-01-29 18:37] VITALS: BP 118/72
[2018-01-29 18:37] LABS: BILIRUBIN NEGATIVE (NEGATIVE); BLOOD NEGATIVE (NEGATIVE); CLARITY CLEAR (CLEAR); COLOR YELLOW (YELLOW); GLUCOSE NEGATIVE (NEGATIVE); KETONE NEGATIVE (NEGATIVE); LEUKO ESTERASE 1+ (NEGATIVE); NITRITE POSITIVE (NEGATIVE); UROBILINOGEN 0.2 E.U./dl (0.2-1.0)
[2018-01-29 18:46] LABS: BACTERIA 2+
[2018-01-29 19:02] VITALS: BP 120/70; BP 140/70
[2018-01-29 19:45] VITALS: BP 149/60
[2018-01-29 21:05] LABS: ABG BASE EXCESS 1.7 mmol/L (-2.0-2.0); ABG HCO3 27.1 mmol/l (22-26); ABG O2 SATURATION 97.5 % (95-97); ARTERIAL BLOOD GAS PCO2 48.1 mmHg (35-45); ARTERIAL BLOOD GAS PH 7.368 (7.35-7.45)
[2018-01-30] VITALS: BP 92/64
[2018-01-30 06:12] LABS: BASO % 0.3 % (0.0-1.0); HEMATOCRIT 32.8 % (37.0-47.0); HEMOGLOBIN 10.6 g/dl (12.0-16.0); LYMPH # 0.8 10*3/uL (1.3-4.4); LYMPH % 21.6 % (27.0-41.0); MEAN CELL VOLUME 104.1 fl (81.0-99.0); MEAN CORPUSCULAR HGB 33.7 pg (27.0-31.0); MEAN CORPUSCULAR HGB CONC 32.3 g/dl (33.0-37.0); MONO # 0.1 10*3/uL (0.1-1.0); MONO % 1.7 % (3.0-9.0); NEUT # 2.7 10*3/uL (2.3-7.9); NEUT % 76.1 % (47.0-73.0); PLATELET COUNT AUTOMATED 154 10*3/uL (130-400); RED BLOOD COUNT 3.15 10*6/uL (4.10-5.10); RED CELL DISTRI WIDTH 12.3 % (0-14.5); WHITE BLOOD COUNT 3.5 10*3/uL (4.8-10.8)
[2018-01-30 06:31] LABS: ALBUMIN 2.9 gm/dl (3.1-4.5); CREATININE 1.29 mg/dL (0.55-1.02); PHOSPHOROUS 4.6 mg/dL (2.5-4.9); POTASSIUM 5.4 mmol/L (3.5-5.1)
[2018-01-30 06:36] LABS: ACT PARTIAL THROMBO TIME 25.8 SECONDS (20.8-31.5); INTERNATIONAL NORM RATIO 1.1 (2.0-3.5)
[2018-01-30 06:42] LABS: THYROID STIM HORMONE (HS) 1.41 uIU/ml (0.358-4.75); TOTAL PROTEIN 6.2 gm/dL (6.4-8.2)
[2018-01-30 08:00] VITALS: BP 147/63
[2018-01-30 08:49] LABS: VITAMIN D, 25-HYDROXY 33.1 ng/mL (30-100)
[2018-01-30 12:00] VITALS: BP 122/51
[2018-01-30 16:00] VITALS: BP 117/52
[2018-01-30 20:00] VITALS: BP 151/68
[2018-01-31] VITALS: BP 132/61
[2018-01-31 06:49] LABS: HEMATOCRIT 33.5 % (37.0-47.0); HEMOGLOBIN 10.7 g/dl (12.0-16.0); LYMPH # 0.7 10*3/uL (1.3-4.4); LYMPH % 8.7 % (27.0-41.0); MEAN CELL VOLUME 105.3 fl (81.0-99.0); MEAN CORPUSCULAR HGB 33.6 pg (27.0-31.0); MEAN CORPUSCULAR HGB CONC 31.9 g/dl (33.0-37.0); MEAN PLATELET VOLUME 10.1 fl (9.6-12.3); MONO # 0.1 10*3/uL (0.1-1.0); MONO % 1.8 % (3.0-9.0); NEUT # 6.8 10*3/uL (2.3-7.9); PLATELET COUNT AUTOMATED 187 10*3/uL (130-400); RED BLOOD COUNT 3.18 10*6/uL (4.10-5.10); RED CELL DISTRI WIDTH 12.2 % (0-14.5); WHITE BLOOD COUNT 7.6 10*3/uL (4.8-10.8)
[2018-01-31 07:34] LABS: CREATININE 1.32 mg/dL (0.55-1.02)
[2018-01-31 08:00] VITALS: BP 122/94
[2018-01-31 12:00] VITALS: BP 130/53
[2018-01-31 16:00] VITALS: BP 116/48
[2018-01-31 20:00] VITALS: BP 149/59
[2018-02-01] VITALS: BP 144/72
[2018-02-01 08:00] VITALS: BP 145/70
[2018-02-01 12:00] VITALS: BP 118/75
[2018-02-01] MEDS ORDERED: AZITHROMYCIN500 M2 PO (14:38)
[2018-02-01] MEDS ORDERED: FUROSEMIDE20 M1 PO (14:38)
[2018-02-01] MEDS ORDERED: PREDNISONE10 MG PO (16:30)
== END 2018-02-01 16:27 | disposition home or self-care (01) | DRG 291 ==
LOC: ED 16:34 → 5E 18:54 → EDHOLD 18:54 → 5E 19:33
PROVIDERS: Internal Medicine; Physician Assistant
DX: I13.0 Hypertensive heart and chronic kidney disease with heart failure and stage 1 through stage 4 chronic kidney disease, or unspecified chronic kidney disease (principal); J18.9 Pneumonia, unspecified organism; J96.01 Acute respiratory failure with hypoxia; J44.0 Chronic obstructive pulmonary disease with (acute) lower respiratory infection; I27.20 Pulmonary hypertension, unspecified; N18.3 Chronic kidney disease, stage 3 (moderate); D53.9 Nutritional anemia, unspecified; I50.33 Acute on chronic diastolic (congestive) heart failure; N39.0 Urinary tract infection, site not specified; J44.1 Chronic obstructive pulmonary disease with (acute) exacerbation; I65.23 Occlusion and stenosis of bilateral carotid arteries; R80.9 Proteinuria, unspecified; R91.1 Solitary pulmonary nodule; D72.819 Decreased white blood cell count, unspecified; E55.9 Vitamin D deficiency, unspecified; I34.1 Nonrheumatic mitral (valve) prolapse; E78.00 Pure hypercholesterolemia, unspecified; R73.03 Prediabetes; I25.10 Atherosclerotic heart disease of native coronary artery without angina pectoris; K57.90 Diverticulosis of intestine, part unspecified, without perforation or abscess without bleeding; I25.2 Old myocardial infarction; Z95.5 Presence of coronary angioplasty implant and graft; Z90.49 Acquired absence of other specified parts of digestive tract; Z82.49 Family history of ischemic heart disease and other diseases of the circulatory system; Z79.82 Long term (current) use of aspirin; Z79.899 Other long term (current) drug therapy; Z88.8 Allergy status to other drugs, medicaments and biological substances; Z90.710 Acquired absence of both cervix and uterus; Z83.3 Family history of diabetes mellitus

== ENCOUNTER → 2018-02-13 | Outpatient (CLI) | payer MEDICARE ==
[~2018-02-13] MED LIST changes: +AZITHROMYCIN500 M2 PO; +PREDNISONE10 MG PO
== END | disposition home or self-care (01) ==
LOC: CARD 01:03
DX: I08.3 Combined rheumatic disorders of mitral, aortic and tricuspid valves (principal)

== ENCOUNTER → 2018-05-06 | Outpatient (CLI) | payer MEDICARE | END | disposition home or self-care (01) | LOC: CARD 03:25 | DX: I48.91 Unspecified atrial fibrillation (principal) ==

== ENCOUNTER → 2018-08-20 | Outpatient (CLI) | payer MEDICARE ==
--- NOTE | ~2018-08-20 | EKG ---
[place], [place] ELECTROCARDIOGRAM REPORT NAME: NAKUL MONTERO UNIT #: [id number] ROOM: DOCTOR: EPIPHANY DRAFT REPORT BIRTHDATE: [birth year] [facility] Test Date: 2018-08-20 Test Time: 13:44:34 Pat Name: NAKUL MONTERO Department: Room: Gender: F Transmitter Engineer: : [id number] Requested By: JACQUELINE ARREAGA Order Number: [id number] Reading MD: Almita Farnsworth MD Measurements Intervals [place] Rate: 93 P: [place]: QRS: 88 QRSD: 101 T: 251 QT: 384 QTc: 478 Interpretive Statements Atrial fibrillation Borderline right axis deviation Nonspecific repol abnormality, diffuse leads Electronically Signed On 08-23-2018 12:06:25 PDT by Almita Farnsworth MD CM:EKGRPT:ELECTROCARDIOGRAM REPORT [id number] JACQUELINE REYES DRAFT REPORT JACQUELINE ARREAGA MD
== END | disposition home or self-care (01) ==
LOC: CARD 13:36
DX: I48.0 Paroxysmal atrial fibrillation (principal)

== ENCOUNTER 2018-08-27 11:02 | Emergency (ER) | payer MEDICARE ==
[~2018-08-27] VITALS: Wt 81.6 kg
== END 2018-08-27 11:20 | disposition expired ==
LOC: ED 11:02
DX: I46.9 Cardiac arrest, cause unspecified (principal); J44.9 Chronic obstructive pulmonary disease, unspecified; I25.10 Atherosclerotic heart disease of native coronary artery without angina pectoris; I13.0 Hypertensive heart and chronic kidney disease with heart failure and stage 1 through stage 4 chronic kidney disease, or unspecified chronic kidney disease; N18.3 Chronic kidney disease, stage 3 (moderate); I50.32 Chronic diastolic (congestive) heart failure; I25.2 Old myocardial infarction; Z90.49 Acquired absence of other specified parts of digestive tract; Z88.8 Allergy status to other drugs, medicaments and biological substances; Z79.899 Other long term (current) drug therapy; Z79.2 Long term (current) use of antibiotics; Z79.82 Long term (current) use of aspirin